=== PATIENT | female | born 1990 | race Caucasian/White ===

== ENCOUNTER 2017-01-18 06:13 | Inpatient (IN) | payer OTHER ==
[2017-01-18] MEDS ORDERED: RINGERS SOLUTION,LACTATED 1,000 ML IV PRN (06:25)
[2017-01-18 06:46] LABS: ABSOLUTE BASOPHILS # (AUTO) 0.1 10^3/uL (0.0-0.2); ABSOLUTE EOSINOPHILS # (AUTO) 0.2 10^3/uL (0.0-0.6); ABSOLUTE LYMPHOCYTES (AUTO) 1.9 10^3/uL (0.5-4.7); ABSOLUTE MONOCYTES (AUTO) 0.8 10^3/uL (0.1-1.4); ABSOLUTE NEUT (AUTO) 7.2 10^3/uL (1.7-8.2); BASOPHILS % (AUTO) 0.7 % (0-2); EOSINOPHILS % (AUTO) 1.6 % (0-6); HEMATOCRIT 36.6 % (36.0-47.0); HEMOGLOBIN 12.3 g/dL (12.0-15.5); HGB HCT DIFFERENCE 0.3; LYMPHOCYTES % (AUTO) 18.7 % (13-45); MEAN CORPUSCULAR HEMOGLOBIN 26.6 pg (27.0-33.4); MEAN CORPUSCULAR HGB CONC 33.6 g/dL (32.0-36.0); MEAN CORPUSCULAR VOLUME 79 fl (80-97); MONOCYTES % (AUTO) 7.9 % (3-13); RED BLOOD COUNT 4.63 10^6/uL (3.72-5.28); RED CELL DISTRIBUTION WIDTH 14.1 % (11.5-14.0); SEGMENTED NEUTROPHILS % (AUTO) 71.1 % (42-78); WHITE BLOOD COUNT 10.1 10^3/uL (4.0-10.5)
[2017-01-18 07:05] LABS: APPEARANCE,URINE SLIGHTLY-CLOUDY; BILIRUBIN,URINE NEGATIVE (NEGATIVE); GLUCOSE, URINE NEGATIVE (NEGATIVE); KETONES,URINE NEGATIVE (NEGATIVE); LEUKOCYTE ESTERASE,URINE MODERATE (NEGATIVE); NITRITE,URINE NEGATIVE (NEGATIVE); PROTEIN,URINE NEGATIVE (NEGATIVE); URINE SPECIFIC GRAVITY 1.013; UROBILINOGEN,URINE NEGATIVE mg/dL (<2.0)
[2017-01-18 07:19] LABS: URINE BARBITURATES SCREEN NEGATIVE; URINE METHADONE SCREEN NEGATIVE; URINE OPIATES LOW NEGATIVE; URINE PHENCYCLIDINE SCREEN NEGATIVE
--- NOTE | 2017-01-18 08:01 | L&D Flow Sheet ---
LD Flowsheet Datetime Report Generated by CPN: 01/18/2017 08:00 Datetime: 01/18/2017 07:58 NBP Sys/Joseline/Mean (mmHg): 80 (QS system process) : 50 (QS system process) : 60 (QS system process) Pulse: 75 (QS system process) Communication: RN at Bedside (Refugio Galdamez RN) LaborFlag: Antepartum (QS system process) Datetime: 01/18/2017 07:37 IV/Blood Work: IV Started; IV Bolus Started (Refugio Galdamez RN) Patient Care Comments: Previous IV discontinued; New IV started R Hand good blood return, site wnl, infuses well. LR 125ml/hr (Refugio Galdamez RN) Datetime: 01/18/2017 07:33 Communication Comments: Dr Moya orders for pt to have epidrual (Refugio Galdamez RN) Datetime: 01/18/2017 07:30 Monitor Mode: External; Palpation (Refugio Galdamez RN) Frequency (min): none/ pt denies (Refugio Galdamez RN) Resting Tone (Palpate): Relaxed (Refugio Galdmaez RN) Monitor Mode: External US (Refugio Galdamez RN) FHR Baseline Rate : 140 (Refugio Galdamez RN) Variability: Moderate 6-25 bpm (Refugio Galdamez RN) Accelerations: 15X15 (Refugio Galdamez RN) Decelerations: None (Refugio Galdamez RN) Level of Consciousness: Fully Conscious (Refugio Galdamez RN) DTR's/Clonus: DTRs 1+; No Clonus (Refugio Galdamez RN) Headache: Denies (Refugio Galdamez RN) Breath Sounds, Left: Clear and Equal (Refugio Galdamez RN) Breath Sounds, Right: Clear and Equal (Refugio Galdamez RN) Nausea/Vomiting: Denies (Refugio Galdamez RN) RUQ Epigastric Pain: Denies (Refugio Galdamez RN) Communication: RN at Bedside; RN Reviewed Strip (Refugio Galdamez RN) Communication Comments: Dr Moya at bedside for US for presentation; Breech (Refugio Galdamez RN) Datetime: 01/18/2017 07:28 NBP Sys/Joseline/Mean (mmHg): 118 (QS system process) : 74 (QS system process) : 90 (QS system process) LaborFlag: Antepartum (QS system process) Datetime: 01/18/2017 07:24 Procedures: Consents Signed (Refugio Rudolph, RN) Datetime: 01/18/2017 07:14 Patient Position/Activity: Right Lateral (Refugio Zaragozafleet, RN) Datetime: 01/18/2017 07:00 Stage of : Antepartum (Patricia Rutledge RN) Monitor Mode: External (Patricia Rutledge RN) Frequency (min): n/a (Patricia Rutledge RN) Quality: Mild (Patricia Rutledge RN) Resting Tone (Palpate): Relaxed (Patricia Rutledge RN) Monitor Mode: External US (Patricia Rutledge RN) FHR Baseline Rate : 135 (Patricia Rutledge RN) FHR Baseline Changes: No Baseline Change (Patricia Rutledge RN) Variability: Moderate 6-25 bpm (Patricia Rutledge RN) Accelerations: 15X15 (Patricia Rutledge RN) Decelerations: None (Patricia Rutledge RN) Pain Presence: None/Denies (Patricia Rutledge RN) Patient Position/Activity: Right Tilt; Semi-Fowlers (Patricia Rutledge RN) Communication: RN at Bedside; RN Reviewed Strip (Patricia Rutledge RN) LaborFlag: Antepartum (QS system process) Datetime: 01/18/2017 06:57 NBP Sys/Joseline/Mean (mmHg): 100 (QS system process) : 63 (QS system process) : 75 (QS system process) Pulse: 94 (QS system process) Datetime: 01/18/2017 06:55 IV/Blood Work: IV Started; IV Infusing per Order; New IV Bag Hung (Patricia Rutledge RN) Datetime: 01/18/2017 06:45 Level of Consciousness: Fully Conscious (Patricia Rutledge RN) DTR's/Clonus: DTRs 2+; No Clonus (Patricia Rutledge RN) Headache: Denies (Patricia Rutledge RN) Breath Sounds, Left: Clear and Equal (Patricia Rutledge RN) Breath Sounds, Right: Clear and Equal (Patricia Rutledge RN) Nausea/Vomiting: Denies (Patricia Rutledge RN) RUQ Epigastric Pain: Denies (Patricia Rutledge RN) Datetime: 01/18/2017 06:41 Contraction Comments: TOCO applied and explained to pt (Patricia Rutledge RN) Comments: US applied and explained to pt (Patricia Rutledge RN)
[2017-01-18] MEDS ORDERED: EPHEDRINE SULFATE INJ 50 MG/1 ML AMPULE ONE ×2 (08:23→12:14)
[2017-01-18] MEDS ORDERED: FENTANYL/BUPIVACAINE/NS/PF 200 MCG/100 ML RTUINJ EPI ONE (08:24)
[2017-01-18] MEDS ORDERED: BUPIVACAINE HCL 0.25 % INJ/PF (2.5 MG/1 ML) 30 ML VIAL ONE (08:24)
[2017-01-18] MEDS ORDERED: AZITHROMYCIN 500 MG in DEXTROSE 5%-WATER 250 ML IV PRN (10:00)
--- NOTE | 2017-01-18 10:01 | L&D Progress Notes ---
PROGRESS NOTES Datetime Report Generated by CPN: 01/18/2017 10:01 PROGRESS NOTE Comment: Attempted ecv forward roll. Pt requested stopping procedure when transvers head to mat right due to nausea and vomitng. Reverted to breech. Pt desires . SIGNATURE SIGNATURE: [id number] Signature: with User ID: [email or web address]
--- NOTE | 2017-01-18 10:01 | L&D Flow Sheet ---
LD Flowsheet Datetime Report Generated by CPN: 01/18/2017 10:00 Datetime: 01/18/2017 09:58 Pulse: 75 (QS system process) SpO2 (%): 97 (QS system process) Communication Comments: Failed version, pt requesting c/section, Dr Neilsen states to prep pt for c/section. (Refugio Galdamez, RN) LaborFlag: Antepartum (QS system process) Datetime: 01/18/2017 09:55 Monitor Interventions for UA: Naturita Adjusted (Refugio Galdamez, RN) Datetime: 01/18/2017 09:53 Pulse: 74 (QS system process) SpO2 (%): 97 (QS system process) Monitor Interventions for FHR: Ultrasound Adjusted (Refugio Galdamez, RN) LaborFlag: Antepartum (QS system process) Datetime: 01/18/2017 09:52 NBP Sys/Joseline/Mean (mmHg): 108 (QS system process) : 58 (QS system process) : 77 (QS system process) Pulse: 90 (QS system process) LaborFlag: Antepartum (QS system process) Datetime: 01/18/2017 09:48 Pulse: 80 (QS system process) SpO2 (%): 98 (QS system process) LaborFlag: Antepartum (QS system process) Datetime: 01/18/2017 09:46 Contraction Comments: toco removed for version (Refugio Rudolph, RN) Communication Comments: Dr Neilsen weaving professor at bedside for version (Refugio Rudolph, RN) Datetime: 01/18/2017 09:43 Pulse: 86 (QS system process) SpO2 (%): 97 (QS system process) LaborFlag: Antepartum (QS system process) Datetime: 01/18/2017 09:38 Pulse: 88 (QS system process) SpO2 (%): 97 (QS system process) LaborFlag: Antepartum (QS system process) Datetime: 01/18/2017 09:37 NBP Sys/Joseline/Mean (mmHg): 105 (QS system process) : 60 (QS system process) : 76 (QS system process) Pulse: 78 (QS system process) LaborFlag: Antepartum (QS system process) Datetime: 01/18/2017 09:31 NBP Sys/Joseline/Mean (mmHg): 108 (QS system process) : 54 (QS system process) : 78 (QS system process) Pulse: 77 (QS system process) LaborFlag: Antepartum (QS system process) Datetime: 01/18/2017 09:30 Monitor Mode: External; Palpation (Refugio Mayorgaeet, RN) Frequency (min): none/ pt denies (Refugio Rudolph, RN) Resting Tone (Palpate): Relaxed (Refugio Mayorgaeet, RN) Monitor Mode: External US (Refugio Mayorgaeet, RN) FHR Baseline Rate : 130 (Refugio Rudolph, RN) Variability: Moderate 6-25 bpm (Refugio Rudolph, RN) Accelerations: 15X15 (Refugio Rudolph, RN) Decelerations: Prolonged (Refugio Mayorgaeet, RN) Communication: RN at Bedside; RN Reviewed Strip (Refugio Mayorgaeet, RN) Datetime: 01/18/2017 09:29 NBP Sys/Joseline/Mean (mmHg): 140 (QS system process) : 83 (QS system process) : 106 (QS system process) Pulse: 69 (QS system process) LaborFlag: Antepartum (QS system process) Datetime: 01/18/2017 09:28 NBP Sys/Joseline/Mean (mmHg): 142 (QS system process) : 99 (QS system process) : 115 (QS system process) Pulse: 67 (QS system process) Patient Position/Activity: Right Lateral (Refugio Zaragozafleet, RN) LaborFlag: Antepartum (QS system process) Datetime: 01/18/2017 09:26 Pulse: 64 (QS system process) SpO2 (%): 100 (QS system process) Anesthesia Interventions Other: Ephedrine (Annotations: 5mg ) (Refugio Galdamez, RN) LaborFlag: Antepartum (QS system process) Datetime: 01/18/2017 09:25 Actions for Decelerations: Side to Side; Oxygen Applied; IV Bolus; Provider Reviewed Strip (Refugio Galdamez RN) Oxygen Amount : 10 (Refugio Galdamez RN) Oxygen Method: Non-Rebreather (Refugio Galdamez RN) Communication: Provider at Bedside (Refugio Galdamez RN) Communication Comments: Dr. Horne at (Refugio Galdamez RN) Datetime: 01/18/2017 09:24 NBP Sys/Joseline/Mean (mmHg): 86 (QS system process) : 50 (QS system process) : 62 (QS system process) Pulse: 45 (QS system process) Anesthesia Interventions Other: Ephedrine (Annotations: 10mg per Dr Seble order ) (Refugio Galdamez RN) LaborFlag: Antepartum (QS system process) Datetime: 01/18/2017 09:22 Actions for Decelerations: IV Bolus; Blood Pressure; Provider Notified (Refugio Galdamez RN) Nausea/Vomiting: Present (Refugio Galdamez RN) Communication Comments: Dr Moya called (Refugio Rudolph, RN) Datetime: 01/18/2017 09:21 Pulse: 44 (QS system process) SpO2 (%): 97 (QS system process) IV/Blood Work: IV Bag Number @ 3 (Refugio Galdamez RN) Patient Care Comments: Oxygen applied (Refugio Galdamez RN) Communication Comments: Dr Mcleod called (Refugio Galdamez RN) LaborFlag: Antepartum (QS system process) Datetime: 01/18/2017 09:20 I/O Interventions: Ayala Cath Inserted (Refugio Galdamez RN) Patient Care Comments: 12F by S Umberto [employer] (Refugio Galdamez RN) Datetime: 01/18/2017 09:19 NBP Sys/Joseline/Mean (mmHg): 109 (QS system process) : 57 (QS system process) : 75 (QS system process) Pulse: 87 (QS system process) LaborFlag: Antepartum (QS system process) Datetime: 01/18/2017 09:17 Pain Presence: None/Denies (Refugio Galdamez RN) Patient Position/Activity: Left Tilt (Refugio Galdamez RN) Anesthesia Level Check: T10- Umbilicus (Refugio Galdamez RN) LaborFlag: Antepartum (QS system process) Datetime: 01/18/2017 09:16 NBP Sys/Joseline/Mean (mmHg): 116 (QS system process) : 53 (QS system process) : 77 (QS system process) Pulse: 148 (QS system process) LaborFlag: Antepartum (QS system process) Datetime: 01/18/2017 09:15 NBP Sys/Joseline/Mean (mmHg): 115 (QS system process) : 60 (QS system process) : 83 (QS system process) Pulse: 80 (QS system process) LaborFlag: Antepartum (QS system process) Datetime: 01/18/2017 09:14 NBP Sys/Joseline/Mean (mmHg): 110 (QS system process) : 59 (QS system process) : 80 (QS system process) Pulse: 82 (QS system process) Monitor Interventions for FHR: Ultrasound Adjusted (Refugio Galdamez, RN) LaborFlag: Antepartum (QS system process) Datetime: 01/18/2017 09:13 NBP Sys/Joseline/Mean (mmHg): 108 (QS system process) : 58 (QS system process) : 80 (QS system process) Pulse: 84 (QS system process) LaborFlag: Antepartum (QS system process) Datetime: 01/18/2017 09:12 NBP Sys/Joseline/Mean (mmHg): 107 (QS system process) : 57 (QS system process) : 78 (QS system process) Pulse: 78 (QS system process) Epidural Procedure: Loading Dose (Refugio Galdamez, RN) LaborFlag: Antepartum (QS system process) Datetime: 01/18/2017 09:11 NBP Sys/Joseline/Mean (mmHg): 102 (QS system process) : 55 (QS system process) : 76 (QS system process) Pulse: 70 (QS system process) LaborFlag: Antepartum (QS system process) Datetime: 01/18/2017 09:10 Pulse: 70 (QS system process) SpO2 (%): 100 (QS system process) Epidural Procedure: Cath Placed; Test Dose (Refugio Galdamez RN) LaborFlag: Antepartum (QS system process) Datetime: 01/18/2017 09:05 Pulse: 76 (QS system process) SpO2 (%): 100 (QS system process) LaborFlag: Antepartum (QS system process) Datetime: 01/18/2017 09:03 Procedure Verify: Correct Patient Identity; Correct Side and Site are Marked; Accurate Procedure Consent Form; Agreement on Procedure to be Done; Correct Patient Position; Relevant Images and Results are Properly Labeled and Displayed; Addressed Need to Administer Antibiotics or Fluids for Irrigation; Safety Precautions Based on Patient History or Medication Use (Refugio Galdamez RN) Anesthesia Plans: Epidural (Refugio Galdamez RN) Epidural Positioning: Sitting (Refugio Galdamez RN) Datetime: 01/18/2017 09:00 Pulse: 81 (QS system process) SpO2 (%): 100 (QS system process) Monitor Mode: External; Palpation (Refugio Galdamez RN) Frequency (min): none/ pt denies (Refugio Galdamez RN) Resting Tone (Palpate): Relaxed (Refugio Galdamez RN) Monitor Mode: External US (Refugio Galdamez RN) FHR Baseline Rate : 130 (Refugio Galdamez RN) Variability: Moderate 6-25 bpm (Refugio Galdamez RN) Accelerations: 15X15 (Refugio Galdamez RN) Decelerations: None (Refugio Galdamez RN) Procedure Verify: Correct Patient Identity; Correct Side and Site are Marked; Accurate Procedure Consent Form; Agreement on Procedure to be Done; Correct Patient Position; Relevant Images and Results are Properly Labeled and Displayed; Addressed Need to Administer Antibiotics or Fluids for Irrigation; Safety Precautions Based on Patient History or Medication Use (Refugio Galdamez RN) Anesthesia Plans: Epidural (Refugio Galdamez RN) Epidural Positioning: Sitting (Refugio Galdamez RN) Anesthesia Comments: toco removed for epidural procedure; RN remains at bedside to attempt to obtain continuous fht and monitor pt (Refugio Galdamez RN) Anesthesia Comments: Dr Pruett at bedside to assess pt and obtain consent for epidural (Refugio Galdamez RN) Communication: RN at Bedside; RN Reviewed Strip (Refugio Galdamez RN) LaborFlag: Antepartum (QS system process) Datetime: 01/18/2017 08:58 NBP Sys/Joseline/Mean (mmHg): 106 (QS system process) : 64 (QS system process) : 79 (QS system process) Pulse: 74 (QS system process) LaborFlag: Antepartum (QS system process) Datetime: 01/18/2017 08:55 Procedure Verify: Correct Patient Identity; Correct Side and Site are Marked; Accurate Procedure Consent Form; Agreement on Procedure to be Done; Relevant Images and Results are Properly Labeled and Displayed; Addressed Need to Administer Antibiotics or Fluids for Irrigation; Safety Precautions Based on Patient History or Medication Use (Refugio Galdamez RN) Anesthesia Plans: Epidural (Refugio Galdamez RN) Anesthesia Comments: Dr Lawton called for epidural (Refugio Galdamez RN) Datetime: 01/18/2017 08:30 Monitor Mode: External; Palpation (Refugio Galdamez RN) Frequency (min): none/ pt denies (Refugio Galdamez RN) Resting Tone (Palpate): Relaxed (Refugio Galdamez RN) Monitor Mode: External US (Refugio Galdamez RN) FHR Baseline Rate : 130 (Refugio Galdamez RN) Variability: Moderate 6-25 bpm (Refugio Galdamez RN) Accelerations: 15X15 (Refugio Galdamez RN) Decelerations: None (Refugio Galdamez RN) Communication: RN at Bedside; RN Reviewed Strip (Refugio Galdamez RN) Datetime: 01/18/2017 08:28 NBP Sys/Joseline/Mean (mmHg): 109 (QS system process) : 66 (QS system process) : 81 (QS system process) Pulse: 71 (QS system process) IV/Blood Work: New IV Bag Hung; IV Bag Number @ 2 (Refugio Galdamez RN) Patient Care Comments: NEFTALI Hose, SCDs applied, 2nd bag LR for epidural hung (Refugio Galdamez, RN) LaborFlag: Antepartum (QS system process) Datetime: 01/18/2017 08:01 NBP Sys/Joseline/Mean (mmHg): 96 (QS system process) : 57 (QS system process) : 70 (QS system process) Pulse: 72 (QS system process) LaborFlag: Antepartum (QS system process) Datetime: 01/18/2017 08:00 Respirations: 18 (Refugio Perezt, RN) Monitor Mode: External; Palpation (Refugio Galdamez, RN) Frequency (min): none/ Pt denies (Refugio Perezt, RN) Resting Tone (Palpate): Relaxed (Refugio Galdamez, RN) Monitor Mode: External US (Refugio Galdamez, RN) FHR Baseline Rate : 140 (Refugio Rudolph, RN) Variability: Moderate 6-25 bpm (Refugio Rudolph, RN) Accelerations: 15X15 (Refugio Rudolph, RN) Decelerations: None (Refugio Galdamez RN) Pain Presence: None/Denies (Refugio Galdamez RN) Communication: RN at Bedside; RN Reviewed Strip (Refugio Galdamez RN) LaborFlag: Antepartum (QS system process)
[2017-01-18] MEDS ORDERED: CEFAZOLIN 2 GM/D5W RTU 2 GM/50 ML RTUPB IV ONE (10:07)
[2017-01-18] MEDS ORDERED: CITRIC ACID/SODIUM CITRATE ORAL SOLN 15 ML UDCUP ONE (10:07)
[2017-01-18] MEDS ORDERED: CEFAZOLIN 2 GM/D5W RTU 50 ML IV SCH (12:00)
--- NOTE | 2017-01-18 12:01 | L&D Flow Sheet ---
LD Flowsheet Datetime Report Generated by CPN: 01/18/2017 12:00 Datetime: 01/18/2017 11:52 NBP Sys/Joseline/Mean (mmHg): 107 (QS system process) : 64 (QS system process) : 78 (QS system process) Pulse: 81 (QS system process) LaborFlag: Antepartum (QS system process) Datetime: 01/18/2017 11:45 Monitor Mode: External; Palpation (Refugio Galdamez RN) Frequency (min): none / pt denies (Refugio Rudolph, RN) Resting Tone (Palpate): Relaxed (Refugio Galdamez RN) Monitor Mode: External US (Refugio Galdamez RN) FHR Baseline Rate : 130 (Refugio Galdamez RN) Variability: Moderate 6-25 bpm (Refugio Galdamez RN) Accelerations: 15X15 (Refugio Galdamez RN) Decelerations: None (Refugio Galdamez RN) Communication: RN at Bedside; RN Reviewed Strip (Refugio Galdamez RN) Datetime: 01/18/2017 11:43 Antibiotics: Ancef IV (Gm) @ 2 (Refugio Galdamez RN) Antiemetics/Antacids: Bicitra 15 ml PO (Refugio Galdamez RN) Datetime: 01/18/2017 11:37 NBP Sys/Joseline/Mean (mmHg): 97 (QS system process) : 54 (QS system process) : 71 (QS system process) Pulse: 98 (QS system process) LaborFlag: Antepartum (QS system process) Datetime: 01/18/2017 11:30 Respirations: 16 (Refugio Galdamez RN) Monitor Mode: External; Palpation (Refugio Galdamez RN) Frequency (min): none/ pt denies (Refugio Galdamez RN) Resting Tone (Palpate): Relaxed (Refugio Galdamez RN) Monitor Mode: External US (Refugio Galdamez RN) FHR Baseline Rate : 130 (Refugio Galdamez RN) Variability: Moderate 6-25 bpm (Refugio Galdamez RN) Accelerations: 15X15 (Refugio Galdamez RN) Decelerations: None (Refugio Galdamez RN) Comments: Broken tracing/ RN adjusting (Refugio Galdamez RN) Pain Presence: None/Denies (Refugio Galdamez RN) Level of Consciousness: Fully Conscious (Refugio Galdamez RN) Headache: Denies (Refugio Galdamez RN) Nausea/Vomiting: Denies (Refugio Galdamez RN) RUQ Epigastric Pain: Denies (Refugio Galdamez RN) Plan of Care: Plan of Care Discussed; C/S Delivery (Refugio Galdamez RN) Medications: Antibiotics (Refugio Galdamez RN) Communication: RN at Bedside; RN Reviewed Strip (Refugio Galdamez RN) LaborFlag: Antepartum (QS system process) Datetime: 01/18/2017 11:22 NBP Sys/Joseline/Mean (mmHg): 95 (QS system process) : 50 (QS system process) : 67 (QS system process) Pulse: 88 (QS system process) LaborFlag: Antepartum (QS system process) Datetime: 01/18/2017 11:15 Monitor Mode: External; Palpation (Refugio Galdamez RN) Frequency (min): none/ pt denies (Refugio Galdamez, RN) Resting Tone (Palpate): Relaxed (Refugio Galdamez RN) Monitor Mode: External US (Refugio Galdamez RN) FHR Baseline Rate : 140 (Refugio Galdamez, RN) Variability: Moderate 6-25 bpm (Refugio Galdamez, RN) Accelerations: None (Refugio Galdamez, RN) Decelerations: None (Refugio Galdamez, RN) Communication: RN at Bedside; RN Reviewed Strip (Refugio Galdamez RN) Datetime: 01/18/2017 11:07 NBP Sys/Joseline/Mean (mmHg): 108 (QS system process) : 59 (QS system process) : 78 (QS system process) Pulse: 76 (QS system process) LaborFlag: Antepartum (QS system process) Datetime: 01/18/2017 11:00 Respirations: 16 (Refugio Galdamez RN) Monitor Mode: External; Palpation (Refugio Galdamez RN) Frequency (min): none/ pt denies (Refugio Galdamez RN) Resting Tone (Palpate): Relaxed (Refugio Galdamez RN) Monitor Mode: External US (Refugio Galdamez RN) FHR Baseline Rate : 130 (Refugio Galdamez RN) Variability: Moderate 6-25 bpm (Refugio Galdamez RN) Accelerations: 15X15 (Refugio Galdamez RN) Decelerations: None (Refugio Galdamez RN) Pain Presence: None/Denies (Refugio Galdamez RN) Communication: RN at Bedside; RN Reviewed Strip (Refugio Galdamez RN) LaborFlag: Antepartum (QS system process) Datetime: 01/18/2017 10:52 NBP Sys/Joseline/Mean (mmHg): 102 (QS system process) : 56 (QS system process) : 73 (QS system process) Pulse: 81 (QS system process) LaborFlag: Antepartum (QS system process) Datetime: 01/18/2017 10:45 Respirations: 16 (Refugio Rudolph, RN) Monitor Mode: External; Palpation (Refugio Galdamez, RN) Frequency (min): none/ denies (Refugio Rudolph, RN) Resting Tone (Palpate): Relaxed (Refugio Rudolph, RN) Monitor Mode: External US (Refugio Perezt, RN) FHR Baseline Rate : 125 (Refugio Rudolph, RN) Variability: Moderate 6-25 bpm (Refugio Rudolph, RN) Accelerations: 15X15 (Refugio Rudolph, RN) Decelerations: None (Refugio Rudolph, RN) Pain Presence: None/Denies (Refugio Rudolph, RN) Level of Consciousness: Fully Conscious (Refugio Rudolph, RN) Headache: Denies (Refugio Mayorgaeet, RN) Nausea/Vomiting: Denies (RefugioARTHUR Marie RUQ Epigastric Pain: Denies (Refugio Galdamez RN) Anesthesia Level Check: T10- Umbilicus (Refugio Galdamez RN) Communication: RN at Bedside; RN Reviewed Strip (Refugio Galdamez RN) LaborFlag: Antepartum (QS system process) Datetime: 01/18/2017 10:37 NBP Sys/Joseline/Mean (mmHg): 110 (QS system process) : 59 (QS system process) : 79 (QS system process) Pulse: 78 (QS system process) LaborFlag: Antepartum (QS system process) Datetime: 01/18/2017 10:30 Monitor Mode: External; Palpation (Refugio Galdamez RN) Frequency (min): none/ pt denies (Refugio Galdamez RN) Resting Tone (Palpate): Relaxed (Refugio Galdamez RN) Monitor Mode: External US (Refugio Galdamez RN) FHR Baseline Rate : 120 (Refugio Galdamez RN) Variability: Moderate 6-25 bpm (Refugio Galdamez RN) Accelerations: 15X15 (Refugio Galdamez RN) Decelerations: None (Refugio Galdamez RN) Comments: Broken tracing, RN adjusting (Refugio Galdamez RN) Communication: RN at Bedside; RN Reviewed Strip (Refugio Galdamez RN) Datetime: 01/18/2017 10:24 NBP Sys/Joseline/Mean (mmHg): 106 (QS system process) : 63 (QS system process) : 76 (QS system process) Pulse: 90 (QS system process) LaborFlag: Antepartum (QS system process) Datetime: 01/18/2017 10:23 Pulse: 138 (QS system process) SpO2 (%): 97 (QS system process) LaborFlag: Antepartum (QS system process) Datetime: 01/18/2017 10:18 Pulse: 79 (QS system process) SpO2 (%): 95 (QS system process) LaborFlag: Antepartum (QS system process) Datetime: 01/18/2017 10:15 Pulse: 80 (QS system process) SpO2 (%): 94 (QS system process) Monitor Mode: External; Palpation (Refugio Galdamez RN) Frequency (min): none / pt denies (Refugio Galdamez RN) Resting Tone (Palpate): Relaxed (Refugio Galdamez RN) Monitor Mode: External US (Refugio Galdamez RN) FHR Baseline Rate : 130 (Refugio Galdamez RN) Variability: Moderate 6-25 bpm (Refugio Galdamez, RN) Accelerations: 15X15 (Refugio Galdamez, RN) Decelerations: None (Refugio Galdamez, RN) Communication: RN at Bedside; RN Reviewed Strip (Refugio Galdamez RN) LaborFlag: Antepartum (QS system process) Datetime: 01/18/2017 10:13 Pulse: 82 (QS system process) SpO2 (%): 96 (QS system process) LaborFlag: Antepartum (QS system process) Datetime: 01/18/2017 10:08 Pulse: 84 (QS system process) SpO2 (%): 98 (QS system process) LaborFlag: Antepartum (QS system process) Datetime: 01/18/2017 10:07 Pulse: 77 (QS system process) SpO2 (%): 86 (QS system process) LaborFlag: Antepartum (QS system process) Datetime: 01/18/2017 10:03 Pulse: 85 (QS system process) SpO2 (%): 97 (QS system process) LaborFlag: Antepartum (QS system process) Datetime: 01/18/2017 10:00 Monitor Mode: External; Palpation (Refugio Galdamez RN) Frequency (min): none / pt denies (Refugio Galdamez RN) Resting Tone (Palpate): Relaxed (Refugio Galdamez RN) Monitor Mode: External US (Refugio Galdamez RN) FHR Baseline Rate : 130 (Refugio Galdamez RN) Variability: Moderate 6-25 bpm (Refugio Galdamez RN) Accelerations: 15X15 (Refugio Galdamez RN) Decelerations: None (Refugio Galadmez RN) Procedures: Consents Signed (Annotations: Section Consent signed) (Refugio Galdamez RN) Communication: RN at Bedside; RN Reviewed Strip (Refugio Galdamez RN)
[2017-01-18] MEDS ORDERED: BUPIVACAINE HCL 0.5 % INJ/PF 30 ML SDV ONE (12:08)
[2017-01-18] MEDS ORDERED: FENTANYL CITRATE INJ/PF 100 MCG/2 ML AMPUL ONE (12:14)
[2017-01-18] MEDS ORDERED: OXYTOCIN 10 UNIT/ML VIAL ONE (12:14)
[2017-01-18] MEDS ORDERED: MIDAZOLAM 2 MG/2 ML INJ ONE (12:14)
[2017-01-18] MEDS ORDERED: FENTANYL CITRATE INJ/PF 250 MCG/5 ML AMPULE ONE (12:14)
[2017-01-18] MEDS ORDERED: OXYTOCIN/NORMAL SALINE 20 UNIT/1,000 ML RTUINJ ONE ×2 (12:15→14:25)
[2017-01-18] MEDS ORDERED: ONDANSETRON HCL INJ/PF 4 MG/2 ML SDV ONE (12:15)
[2017-01-18] MEDS ORDERED: MEPERIDINE HCL/PF INJ 25 MG/1 ML DISP.SYRIN IV PRN (12:42)
[2017-01-18] MEDS ORDERED: DIPHENHYDRAMINE HCL 50 MG/ML VIAL IV PRN (12:42)
[2017-01-18] MEDS ORDERED: MORPHINE SULFATE 10 MG/ML INJ IV PRN (12:42)
[2017-01-18] MEDS ORDERED: PROMETHAZINE HCL INJ 25 MG/1 ML VIAL IV PRN (12:42)
[2017-01-18] MEDS ORDERED: FENTANYL CITRATE INJ/PF 100 MCG/2 ML AMPUL IV PRN ×3 (12:42)
--- NOTE | 2017-01-18 13:21 | Operative Report ---
Operative Report DATE OF SURGERY: 01/18/17 PREOPERATIVE DIAGNOSIS: Intrauterine at term with breech presentation , failed external cephalic version, and late decelerations after epidural anesthesia with desire for primary POSTOPERATIVE DIAGNOSIS: Term intrauterine with breech presentation and failed external cephalic version OPERATION: Primary low transverse cervical section SURGEON: KIRK JAUREGUI ANESTHESIA: Epidural TISSUE REMOVED OR ALTERED: Placenta ESTIMATED BLOOD LOSS: 700 mL INTRAOPERATIVE FINDINGS: Holley female in complete breech presentation weighing 6 lbs. 4 oz. Apgars were 8 and 9. Normal tubes and ovaries and uterus had a 2-3 cm submucosal fibroid on the posterior aspect and a 2 cm anterior subserosal fibroid. Clear amniotic fluid. PROCEDURE: After discussing risks benefits and alternatives of the procedure and obtaining informed consent the patient was taken to the operating room with epidural anesthesia bolused. She was positioned in the dorsal supine position with a leftward tilt. She was then prepped and draped in the usual standard fashion. Pfannenstiel skin incision was made and the abdomen was entered in layers in the usual standard fashion. The C safe knife was used to make a low-transverse hysterotomy incision. The surgeon's hand was entered into the hysterotomy incision and the feet grasped. The infant was delivered to the level of the chest, a blue towel was wrapped around the body, and each arm was swung down over the anterior chest wall. The head was delivered and keeping it in flexion. Nasopharynx and oropharynx were bulb suctioned. Cord was clamped -2 and cut. The infant was handed to pediatrics who were present. The placenta was manually extracted. The uterus was cleared of all clots and debris. The hysterotomy incision was closed with 0 Monocryl in a running locked fashion. Excellent hemostasis was observed. The uterus tubes and ovaries were returned to the peritoneal cavity. The cavity was irrigated with saline and hemostasis was again assured. A layer of Interceed was placed in an inverted T fashion over the lower uterine segment and anterior aspect of the uterus. Peritoneum was closed with 2-0 Vicryl in a pursestring fashion. Rectus muscles were loosely reapproximated with interrupted stitches of 2-0 Vicryl. The subfascial space was inspected and noted to be hemostatic. The fascia was closed with #1 Vicryl. The subcutaneous tissues were irrigated and hemostasis assured. 3-O plain gut was used to reapproximate the subcutaneous space which was quite thick. The skin was closed in a subcuticular fashion with 4-0 Monocryl. An OpSite dressing was applied. The patient was taken to recovery in stable condition. All sponge needle lap and instrument counts were correct correct x 2.
[2017-01-18] MEDS ORDERED: ACETAMINOPHEN 100 ML IV ONE (13:44)
--- NOTE | 2017-01-18 13:59 | Delivery Summary ---
Del Sum A-C Datetime Report Generated by CPN: 01/18/2017 13:59 ADMISSION DATA Chief Complaint: Other Chief Complaint Comments: desire for ecv Admission Impression: Term, Intrauterine Admit Provider Comments: Discussed r/b/a of ecv and pt would like to proceed...plan if unable move to vertex given decel after epidural. Discussed r/b/a of emergently if distress during version. DELIVERY PERSONNEL Delivery Doctor:: Liz Moya MD Anesthesiologist:: Milton Lawton MD DRAWER IN PLAIN LOOM:: Gigi Tadeo CRNA Labor and Delivery Nurse:: Refugio Galdamez RNpolitical organizer Nurse:: Daisy Rose RN Mirror Department Supervisor:: Refugio Galdamez RN Nursery Nurse:: Sujata Whelan RN Nursery Nurse:: Giselle Ward RN Student Observers:: Veronique Cheng, Royal MCFADDEN Plate And Frame Filter Operator/CHILDBIRTH AND INFANT CARE TEACHER: ST Dylan Plate And Frame Filter Operator/CHILDBIRTH AND INFANT CARE TEACHER: Cuca Munoz CST MATERNAL INFORMATION Delivery Anesthesia: Epidural Medications After Delivery: Pitocin Bolus-Please Comment; Pitocin Drip 20 Units/1000ml NSS Meds After Delivery Comment: Pitocin 20 units in 1000 mL NS bolusing after delivery of placenta; Hung by anesthesia Estimated Blood Loss (ml): 700 Maternal Complications: None Other Maternal Complications: BREECH; Failed ECV LABOR SUMMARY EDC: 01/28/2017 00:00 No. Babies in Womb: 1 Attempted: No Labor Anesthesia: Epidural LABOR INFORMATION Reason for Induction: Not Applicable Oxytocin: N/A Group B Beta Strep: Negative Antibiotics # of Doses: 0 Steroids Given: None Reason Steroids Not Administered: Not Applicable MEMBRANES Membranes Rupture Method: Artificial Rupture of Membranes: 01/18/2017 12:27 Length of Rupture (hr): 0.05 Amniotic Fluid Color: Clear Amniotic Fluid Amount: Moderate Amniotic Fluid Odor: Normal STAGES OF LABOR Stage 3 hr: 0 Stage 3 min: 1 VAGINAL DELIVERY Episiotomy: None Laceration Extension: N/A Laceration Type: None Laceration Repair: Not Applicable Sponge Count Correct: N/A Sharps Count Correct: N/A CSECTION DELIVERY Primary Indication: Breech Presentation Other Primary Indication: Failed ECV CSection Urgency: Scheduled CSection Incidence: Primary Labor: No Labor Elective: Nonelective CSection Incision: Lower Uterine Transverse BABY A INFORMATION Infant Delivery Date/Time: 01/18/2017 12:30 Method of Delivery: Born in Route : No : N/A Forceps: N/A Vacuum Extraction: N/A Shoulder Dystocia : No PRESENTATION/POSITION BABY A Presentation: Breech Cephalic Presentation: N/A Vertex Position: N/A PLACENTA INFORMATION BABY A Placenta Delivery Time : 01/18/2017 12:31 Placenta Method of Delivery: Manual Removal Placenta Status: Delivered SCORES BABY A Heart Rate 1 min: >100 bpm Resp Effort 1 min: Good Cry Reflex Irritability 1 min: Cough or Sneeze or Pulls Away Muscle Tone 1 min: Active Motion Color 1 min: Blue/Pale Resuscitation Effort 1 min: Tactile Stimulation SCORE 1 MIN: 8 Heart Rate 5 min: >100 bpm Resp Effort 5 min: Good Cry Reflex Irritability 5 min: Cough or Sneeze or Pulls Away Muscle Tone 5 min: Active Motion Color 5 min: Body Hendrum, Extremities Blue Resuscitation Effort 5 min: N/A SCORE 5 MIN: 9 INFANT INFORMATION BABY A Gestational Age at Delivery: 38.4 Gestational Status: Early Term- 37- 38.6 Weeks Outcome : Liveborn Infant Condition : Stable Infant Sex: Female IDENTIFICATION BABY A Infant Verification Date/Time: 01/18/2017 12:30 ID Band Number: [id number] Mother's Name Verified: Yes Infant RN Verifying : Evette BOGDAN Rose Additional Verifying Personnel: Yamileth Galdamez RN WEIGHT/LENGTH BABY A Birthweight (gm): 2845 Weight (lb): 6 Weight (oz): 4 Infant Length (in): 19.25 Length (cm): 48.90 CORD INFORMATION BABY A No. Cord Vessels: 3 Nuchal Cord : N/A Cord Blood Taken: Yes-For Eval (Mom's Blood Type - or O+) Suction: Mouth; Nose ASSESSMENT BABY A Complications: None Physical Findings at Delivery: Within Normal Limits Physical Findings- Other: See nursery notes Respirations: Appears Normal Skin to Skin: Yes Skin to Skin Time (min): 45 Meter Reading Clerk/ALS Called : No Care By: Elijah Whelan RN/ Kassandra Ward RN Transferred To: Nursery BABY B INFORMATION : N/A
--- NOTE | 2017-01-18 14:01 | L&D Flow Sheet ---
LD Flowsheet Datetime Report Generated by CPN: 01/18/2017 14:00 Datetime: 01/18/2017 13:56 NBP Sys/Joseline/Mean (mmHg): 89 (QS system process) : 55 (QS system process) : 67 (QS system process) Pulse: 68 (QS system process) Datetime: 01/18/2017 13:52 Pulse: 72 (QS system process) SpO2 (%): 98 (QS system process) Datetime: 01/18/2017 13:51 NBP Sys/Joseline/Mean (mmHg): 96 (QS system process) : 61 (QS system process) : 74 (QS system process) Pulse: 75 (QS system process) Datetime: 01/18/2017 13:49 Pain Scale: 1 (Refugio Rudolph, RN) Pain Presence: Constant (Refugio Rudolph, RN) Pain Type: Ache (Refugio Rudolph, RN) Pain Location: Abdomen (Refugio Rudolph, RN) Pain Relief Measures: Pain Medication Given; Comfort Measures (Refugio Rudolph, RN) Datetime: 01/18/2017 13:47 Pulse: 73 (QS system process) SpO2 (%): 97 (QS system process) Datetime: 01/18/2017 13:46 NBP Sys/Joseline/Mean (mmHg): 100 (QS system process) : 62 (QS system process) : 76 (QS system process) Pulse: 87 (QS system process) Datetime: 01/18/2017 13:45 Stage of : Recovery (Refugio Rudolph, RN) Respirations: 18 (Refugio Rudolph, RN) Pain Presence: None/Denies (Refugio Rudolph, RN) Datetime: 01/18/2017 13:42 Pulse: 70 (QS system process) SpO2 (%): 96 (QS system process) Datetime: 01/18/2017 13:41 NBP Sys/Joseline/Mean (mmHg): 98 (QS system process) : 58 (QS system process) : 73 (QS system process) Pulse: 70 (QS system process) Datetime: 01/18/2017 13:37 Pulse: 71 (QS system process) SpO2 (%): 95 (QS system process) Datetime: 01/18/2017 13:36 NBP Sys/Joseline/Mean (mmHg): 95 (QS system process) : 57 (QS system process) : 70 (QS system process) Pulse: 70 (QS system process) Datetime: 01/18/2017 13:32 Pulse: 80 (QS system process) SpO2 (%): 97 (QS system process) Datetime: 01/18/2017 13:31 NBP Sys/Joseline/Mean (mmHg): 90 (QS system process) : 50 (QS system process) : 63 (QS system process) Pulse: 88 (QS system process) Datetime: 01/18/2017 13:30 Stage of : Recovery (Refugio Rudolph, RN) Respirations: 16 (Refugio Rudolph, RN) Pain Presence: None/Denies (Refugio Rudolph, RN) Datetime: 01/18/2017 13:26 NBP Sys/Joseline/Mean (mmHg): 94 (QS system process) : 53 (QS system process) : 68 (QS system process) Pulse: 73 (QS system process) Datetime: 01/18/2017 13:23 Pulse: 73 (QS system process) SpO2 (%): 97 (QS system process) Datetime: 01/18/2017 13:21 NBP Sys/Joseline/Mean (mmHg): 96 (QS system process) : 53 (QS system process) : 72 (QS system process) Pulse: 71 (QS system process) Datetime: 01/18/2017 13:18 Pulse: 77 (QS system process) SpO2 (%): 98 (QS system process) Datetime: 01/18/2017 13:16 NBP Sys/Joseline/Mean (mmHg): 95 (QS system process) : 50 (QS system process) : 66 (QS system process) Pulse: 72 (QS system process) Datetime: 01/18/2017 13:15 Stage of : Recovery (Refugio Rudolph, RN) Pain Presence: Constant (Refugio Rduolph, RN) Pain Type: Ache (Refugio Rudolph, RN) Pain Location: Abdomen (Refugio Rudolph, RN) Pain Relief Measures: Comfort Measures (Refugio Rudolph, RN) Datetime: 01/18/2017 13:13 Pulse: 78 (QS system process) SpO2 (%): 97 (QS system process) Datetime: 01/18/2017 13:10 NBP Sys/Joseline/Mean (mmHg): 95 (QS system process) : 54 (QS system process) : 70 (QS system process) Pulse: 74 (QS system process) Datetime: 01/18/2017 13:09 Stage of : Recovery (Refugio Rudolph, RN) Respirations: 16 (Refugio Rudolph, RN) Temperature (F): 97.3 (Refugio Rudolph, RN) Temperature (C): 36.3 (QS system process) Pain Presence: None/Denies (Refugio Rudolph, RN) Datetime: 01/18/2017 13:08 Pulse: 76 (QS system process) SpO2 (%): 97 (QS system process) LaborFlag: Antepartum (QS system process) Datetime: 01/18/2017 12:07 Patient Care Comments: Pt transferred to OR in stable condition via bed with RN (Daisy Rose RN) Epidural Procedure Other: Epidural pump discontinued (Refugio Galdamez RN) Datetime: 01/18/2017 12:00 Monitor Mode: External; Palpation (Refugio Galdamez RN) Frequency (min): none / pt denies (Refugio Galdamez RN) Resting Tone (Palpate): Relaxed (Refugio Galdamez RN) Monitor Mode: External US (Refugio Galdamez RN) FHR Baseline Rate : 130 (Refugio Galdamez RN) Variability: Moderate 6-25 bpm (Refugio Galdamez RN) Accelerations: 15X15 (Refugio Galdamez RN) Decelerations: None (Refugio Galdamez RN) Communication: RN at Bedside; RN Reviewed Strip (Refugio Galdamez RN)
[2017-01-18] MEDS ORDERED: MEASLES,MUMPS&RUBELLA VACC/PF 0.5 ML VIAL SUBCUT PRN (14:12)
[2017-01-18] MEDS ORDERED: SIMETHICONE 80 MG TAB.CHEW PO PRN (14:12)
[2017-01-18] MEDS ORDERED: ACETAMINOPHEN 325 MG TABLET PO PRN (14:12)
[2017-01-18] MEDS ORDERED: HYDROMORPHONE HCL INJ/PF 2 MG/ML AMPULE IV PRN (14:12)
[2017-01-18] MEDS ORDERED: DIPH/PERTUSS(ACELL)/TETANUS VAC/PF 0.5 ML SYR (>=10YO) IM PRN (14:12)
[2017-01-18] MEDS ORDERED: PROMETHAZINE HCL INJ 25 MG/1 ML VIAL IM PRN (14:12)
[2017-01-18] MEDS ORDERED: OXYTOCIN/NORMAL SALINE 20 UNIT/1,000 ML RTUINJ INJ PRN (14:12)
[2017-01-18] MEDS ORDERED: OXYCODONE-ACETAMINOPHEN 5-325 MG TABLET PO PRN ×2 (14:12)
[2017-01-18] MEDS ORDERED: KETOROLAC TROMETHAMINE INJ/PF 30 MG/1 ML SDV ONE (14:25)
--- NOTE | 2017-01-18 15:09 | Admission Physical ---
Datetime Report Generated by CPN: 01/18/2017 15:08 CURRENT ADMISSION Chief Complaint: Other Chief Complaint Other: desire for ecv Admit Plan: Admit to Unit ALLERGIES Medication Allergies: Yes Medication Allergies: Penicillins (01/18/2017); oxycodone (01/18/2017); acetaminophen (01/18/2017) Food Allergies: n/a Environmental Allergies: n/a OBSTETRICAL HISTORY EDC: 01/28/2017 00:00 : 1 Para: 0 Term: 0 : 0 SAB: 0 IAB: 0 Ectopic: 0 Livin Cesareans: 0 VBACs: 0 Multiple Births: 0 Gestational Diabetes: No Rh Sensitization: No Incompetent Cervix: No NUZHAT: No Infertility: No ART Treatment: No Uterine Anomaly: No IUGR: No Hx Previous C/S: No Macrosomia: No Hx Loss/Stillborn: No PIH: No Hx : No Placenta Previa/Abruption: No Depression/PP Depression: No PTL/PROM: No Post Hemorrhage: No Current Procedures: None Obstetrical History Comments: g1 - current SEE RECORDS Alcohol: No Marijuana : No Cocaine: No Other Illicit Drugs: No Cigarettes: Never Smoker. [id number] MEDICAL HISTORY Diabetes: No Blood Transfusion: No Pulmonary Disease (Asthma, TB): No Breast Disease: No Hypertension: No Senior Accounts Payable Specialist Surgery: No Heart Disease: No Hosp/Surgery: No Autoimmune Disorder: No Anesthetic Complications: No Kidney Disease: No Abnormal Pap Smear: No Neuro/Epilepsy: No Psychiatric Disorders: No Other Medical Diseases: No Hepatitis/Liver Disease: No Significant Family History: No Varicosities/Phlebitis: No Trauma/Violence : No Thyroid Dysfunction: No INFECTIOUS HISTORY Gonorrhea: No Genital Herpes: No Chlamydia: No Tuberculosis: No Syphilis: No Hepatitis: No HIV/AIDS Exposure: No Rash or Viral Illness: No HPV: No PHYSICAL EXAM General: Normal HEENT: Normal Neurologic: Normal Thyroid: Normal Heart: Normal Lungs: Normal Breast: Normal Back: Normal Abdomen: Normal Genitourinary Exam: Normal Extremities: Normal DTRs: Normal Pelvic Type: Adequate Physical Exam Comments: breech presentation on sono cat 1 fhts on admit...had decl after epidural FETUS A EGA: 38.4 Monitoring: External US Admit Comment: Discussed r/b/a of ecv and pt would like to proceed...plan if unable move to vertex given decel after epidural. Discussed r/b/a of emergently if distress during version. PLANS FOR LABOR AND DELIVERY Labor and Delivery: None Pain Management: Epidural Feeding Preference: Breast Benefit of Breast Feed Discussed: Yes Circumcision: N/A INFORMED CONSENT Signature: with User ID: [email or web address]
[2017-01-18] MEDS: DOCUSATE SODIUM 100 MG CAPSULE PO SCH (17:48)
[2017-01-18] MEDS ORDERED: KETOROLAC TROMETHAMINE INJ/PF 30 MG/1 ML SDV IV SCH (18:00)
--- NOTE | 2017-01-18 19:01 | L&D Flow Sheet ---
LD Flowsheet Datetime Report Generated by CPN: 01/18/2017 19:00 Datetime: 01/18/2017 15:00 Stage of : Recovery (Refugio Rudolph, RN) Respirations: 18 (Refugio Rudolph, RN) Pain Presence: None/Denies (Refugio Rudolph, RN) Datetime: 01/18/2017 14:57 NBP Sys/Joseline/Mean (mmHg): 93 (QS system process) : 55 (QS system process) : 73 (QS system process) Pulse: 72 (QS system process) Datetime: 01/18/2017 14:45 Stage of : Recovery (Refugio Rudolph, RN) Respirations: 16 (Refugio Rudolph, RN) Pain Presence: None/Denies (Refugio Rudolph, RN) Datetime: 01/18/2017 14:42 NBP Sys/Joseline/Mean (mmHg): 94 (QS system process) : 58 (QS system process) : 71 (QS system process) Pulse: 68 (QS system process) Datetime: 01/18/2017 14:30 Stage of : Recovery (Refugio Rudolph, RN) Temperature (F): 97.6 (Refugio Rudolph, RN) Temperature (C): 36.4 (QS system process) Temperature Route: Axillary (Refugio Rudolph, RN) Pain Scale: 1 (Refugio Rudolph, RN) Pain Presence: None/Denies (Refugio Rudolph, RN) Pain Presence: Constant (Refugio Rudolph, RN) Pain Location: Abdomen (Refugio Rudolph, RN) Datetime: 01/18/2017 14:27 NBP Sys/Joseline/Mean (mmHg): 97 (QS system process) : 56 (QS system process) : 71 (QS system process) Pulse: 67 (QS system process) Datetime: 01/18/2017 14:15 Stage of : Recovery (Refugio Rudolph, RN) Respirations: 16 (Refugio Rudolph, RN) Pain Presence: None/Denies (Refugio Rudolph, RN) Datetime: 01/18/2017 14:00 Stage of : Recovery (Refugio Rudolph, RN) Respirations: 16 (Refugio Rudolph, RN) Pain Presence: None/Denies (Refugio Rudolph, RN) Datetime: 01/18/2017 13:56 NBP Sys/Joseline/Mean (mmHg): 89 (QS system process) : 55 (QS system process) : 67 (QS system process) Pulse: 68 (QS system process) Datetime: 01/18/2017 13:52 Pulse: 72 (QS system process) SpO2 (%): 98 (QS system process) Datetime: 01/18/2017 13:51 NBP Sys/Joseline/Mean (mmHg): 96 (QS system process) : 61 (QS system process) : 74 (QS system process) Pulse: 75 (QS system process) Datetime: 01/18/2017 13:49 Pain Scale: 1 (Refugio Perezt, RN) Pain Presence: Constant (Refugio Perezt, RN) Pain Type: Ache (Refugio Mayorgaeet, RN) Pain Location: Abdomen (Refugio Perezt, RN) Pain Relief Measures: Pain Medication Given; Comfort Measures (Refugio Mayorgaeet, RN) Datetime: 01/18/2017 13:47 Pulse: 73 (QS system process) SpO2 (%): 97 (QS system process) Datetime: 01/18/2017 13:46 NBP Sys/Joseline/Mean (mmHg): 100 (QS system process) : 62 (QS system process) : 76 (QS system process) Pulse: 87 (QS system process) Datetime: 01/18/2017 13:45 Stage of : Recovery (Refugio Rudolph, RN) Respirations: 18 (Refugio Rudolph, RN) Pain Presence: None/Denies (Refugio Rudolph, RN) Datetime: 01/18/2017 13:42 Pulse: 70 (QS system process) SpO2 (%): 96 (QS system process) Datetime: 01/18/2017 13:41 NBP Sys/Joseline/Mean (mmHg): 98 (QS system process) : 58 (QS system process) : 73 (QS system process) Pulse: 70 (QS system process) Datetime: 01/18/2017 13:37 Pulse: 71 (QS system process) SpO2 (%): 95 (QS system process) Datetime: 01/18/2017 13:36 NBP Sys/Joseline/Mean (mmHg): 95 (QS system process) : 57 (QS system process) : 70 (QS system process) Pulse: 70 (QS system process) Datetime: 01/18/2017 13:32 Pulse: 80 (QS system process) SpO2 (%): 97 (QS system process) Datetime: 01/18/2017 13:31 NBP Sys/Joseline/Mean (mmHg): 90 (QS system process) : 50 (QS system process) : 63 (QS system process) Pulse: 88 (QS system process) Datetime: 01/18/2017 13:30 Stage of : Recovery (Refugio Rudolph, RN) Respirations: 16 (Refugio Rudolph, RN) Pain Presence: None/Denies (Refugio Rudolph, RN) Datetime: 01/18/2017 13:26 NBP Sys/Joseline/Mean (mmHg): 94 (QS system process) : 53 (QS system process) : 68 (QS system process) Pulse: 73 (QS system process) Datetime: 01/18/2017 13:23 Pulse: 73 (QS system process) SpO2 (%): 97 (QS system process) Datetime: 01/18/2017 13:21 NBP Sys/Joseline/Mean (mmHg): 96 (QS system process) : 53 (QS system process) : 72 (QS system process) Pulse: 71 (QS system process) Datetime: 01/18/2017 13:18 Pulse: 77 (QS system process) SpO2 (%): 98 (QS system process) Datetime: 01/18/2017 13:16 NBP Sys/Joseline/Mean (mmHg): 95 (QS system process) : 50 (QS system process) : 66 (QS system process) Pulse: 72 (QS system process) Datetime: 01/18/2017 13:15 Stage of : Recovery (Refugio Rudolph, RN) Pain Presence: Constant (Refugio Rudolph, RN) Pain Type: Ache (Refugio Rudolph, RN) Pain Location: Abdomen (Refugio Rudolph, RN) Pain Relief Measures: Comfort Measures (Refugio Rudolph, RN) Datetime: 01/18/2017 13:13 Pulse: 78 (QS system process) SpO2 (%): 97 (QS system process) Datetime: 01/18/2017 13:10 NBP Sys/Joseline/Mean (mmHg): 95 (QS system process) : 54 (QS system process) : 70 (QS system process) Pulse: 74 (QS system process) Datetime: 01/18/2017 13:09 Stage of : Recovery (Refugio Rudolph, RN) Respirations: 16 (Refugio Rudolph, RN) Temperature (F): 97.3 (Refugio Rudolph, RN) Temperature (C): 36.3 (QS system process) Pain Presence: None/Denies (Refugio Rudolph, RN) Datetime: 01/18/2017 13:08 Pulse: 76 (QS system process) SpO2 (%): 97 (QS system process) LaborFlag: Antepartum (QS system process) Datetime: 01/18/2017 12:07 Patient Care Comments: Pt transferred to OR in stable condition via bed with RN (Daisy Matthewmira, RN) Epidural Procedure Other: Epidural pump discontinued (Refugio Galdamez, RN) Datetime: 01/18/2017 12:04 Communication Comments: K. Mejia, [employer] called and notified of pt transport to OR shortly. Provider verbalized understanding. (Daisy Matthewano, RN) Datetime: 01/18/2017 12:03 Communication Comments: Anesthesia and Nursery notified of pt transport to OR shortly. Anesthesiologists and nursery RNs verbalize understanding. (Daisy Rose RN) Datetime: 01/18/2017 12:00 Monitor Mode: External; Palpation (Refugio Galdamez RN) Frequency (min): none / pt denies (Refugio Galdamez RN) Resting Tone (Palpate): Relaxed (Refugio Galdamez RN) Monitor Mode: External US (Refugio Galdamez RN) FHR Baseline Rate : 130 (Refugio Galdamez RN) Variability: Moderate 6-25 bpm (Refugio Galdamez RN) Accelerations: 15X15 (Refugio Galdamez RN) Decelerations: None (Refugio Galdamez RN) Communication: RN at Bedside; RN Reviewed Strip (Refugio Galdamez RN) Datetime: 01/18/2017 11:52 NBP Sys/Joseline/Mean (mmHg): 107 (QS system process) : 64 (QS system process) : 78 (QS system process) Pulse: 81 (QS system process) LaborFlag: Antepartum (QS system process) Datetime: 01/18/2017 11:45 Monitor Mode: External; Palpation (Refugio Perezt, RN) Frequency (min): none / pt denies (Refugio Perezt, RN) Resting Tone (Palpate): Relaxed (Refugio Mayorgaeet, RN) Monitor Mode: External US (Refugio Mayorgaeet, RN) FHR Baseline Rate : 130 (Refugio Zaragozafleet, RN) Variability: Moderate 6-25 bpm (Refugio Rudolph, RN) Accelerations: 15X15 (Refugio Rudolph, RN) Decelerations: None (Refugio Mayorgaeet, RN) Communication: RN at Bedside; RN Reviewed Strip (Refugio Galdamez, RN) Datetime: 01/18/2017 11:43 Antibiotics: Ancef IV (Gm) @ 2 (Refugio Galdamez, RN) Antiemetics/Antacids: Bicitra 15 ml PO (Refugio Mayorgaeet, RN) Datetime: 01/18/2017 11:37 NBP Sys/Joseline/Mean (mmHg): 97 (QS system process) : 54 (QS system process) : 71 (QS system process) Pulse: 98 (QS system process) LaborFlag: Antepartum (QS system process) Datetime: 01/18/2017 11:30 Respirations: 16 (Refugio Galdamez, RN) Monitor Mode: External; Palpation (Refugio Galdamez, RN) Frequency (min): none/ pt denies (Refugio Galdamez, RN) Resting Tone (Palpate): Relaxed (Refugio Galdamez, RN) Monitor Mode: External US (Refugio Galdamez, RN) FHR Baseline Rate : 130 (Refugio Mayorgaeet, RN) Variability: Moderate 6-25 bpm (Refugio Perezt, RN) Accelerations: 15X15 (Refugio Perezt, RN) Decelerations: None (Refugio Galdamez, RN) Comments: Broken tracing/ RN adjusting (Refugio Galdamez, RN) Pain Presence: None/Denies (Refugio Galdamez RN) Level of Consciousness: Fully Conscious (Refugio Galdamez RN) Headache: Denies (Refugio Galdamez RN) Nausea/Vomiting: Denies (Refugio Galdamez RN) RUQ Epigastric Pain: Denies (Refugio Galdamez RN) Plan of Care: Plan of Care Discussed; C/S Delivery (Refugio Galdamez RN) Medications: Antibiotics (Refugio Galdamez RN) Communication: RN at Bedside; RN Reviewed Strip (Refugio Galdamez RN) Communication Comments: Dr Moya called unit, states to open OR; plan for C/S at 1200. (Refugio Galdamez RN) LaborFlag: Antepartum (QS system process) Datetime: 01/18/2017 11:22 NBP Sys/Joselnie/Mean (mmHg): 95 (QS system process) : 50 (QS system process) : 67 (QS system process) Pulse: 88 (QS system process) LaborFlag: Antepartum (QS system process) Datetime: 01/18/2017 11:15 Monitor Mode: External; Palpation (Refugio Rudolph, RN) Frequency (min): none/ pt denies (Refugio Galdamez, RN) Resting Tone (Palpate): Relaxed (Refugio Galdamez RN) Monitor Mode: External US (Refugio Galdamez RN) FHR Baseline Rate : 140 (Refugio Galdamez, RN) Variability: Moderate 6-25 bpm (Refugio Galdamez, RN) Accelerations: None (Refugio Galdamez, RN) Decelerations: None (Refugio Galdamez RN) Communication: RN at Bedside; RN Reviewed Strip (Refugio Galdamez RN) Datetime: 01/18/2017 11:07 NBP Sys/Joseline/Mean (mmHg): 108 (QS system process) : 59 (QS system process) : 78 (QS system process) Pulse: 76 (QS system process) LaborFlag: Antepartum (QS system process) Datetime: 01/18/2017 11:00 Respirations: 16 (Refugio Galdamez RN) Monitor Mode: External; Palpation (Refugio Galdamez RN) Frequency (min): none/ pt denies (Refugio Galdamez RN) Resting Tone (Palpate): Relaxed (Refugio Galdamez RN) Monitor Mode: External US (Refugio Galdamez RN) FHR Baseline Rate : 130 (Refugio Galdamez RN) Variability: Moderate 6-25 bpm (Refugio Galdamez RN) Accelerations: 15X15 (Refugio Galdamez RN) Decelerations: None (Refugio Galdamez RN) Pain Presence: None/Denies (Refugio Galdamez RN) Communication: RN at Bedside; RN Reviewed Strip (Refugio Galdamez RN) LaborFlag: Antepartum (QS system process) Datetime: 01/18/2017 10:52 NBP Sys/Joseline/Mean (mmHg): 102 (QS system process) : 56 (QS system process) : 73 (QS system process) Pulse: 81 (QS system process) LaborFlag: Antepartum (QS system process) Datetime: 01/18/2017 10:45 Respirations: 16 (Refugio Galdamez RN) Monitor Mode: External; Palpation (Refugio Galdamez RN) Frequency (min): none/ denies (Refugio Galdamez RN) Resting Tone (Palpate): Relaxed (Refugio Galdamez RN) Monitor Mode: External US (Refugio Galdamez RN) FHR Baseline Rate : 125 (Refugio Galdamez RN) Variability: Moderate 6-25 bpm (Refugio Galdamez RN) Accelerations: 15X15 (Refugio Galdamez RN) Decelerations: None (Refugio Galdamez RN) Pain Presence: None/Denies (Refugio Galdamez RN) Level of Consciousness: Fully Conscious (Refugio Galdamez RN) Headache: Denies (Refugio Galdamez RN) Nausea/Vomiting: Denies (Refugio Galdamez RN) RUQ Epigastric Pain: Denies (Refugio Galdamez RN) Anesthesia Level Check: T10- Umbilicus (Refugio Galdamez RN) Communication: RN at Bedside; RN Reviewed Strip (Refugio Galdamez RN) LaborFlag: Antepartum (QS system process) Datetime: 01/18/2017 10:37 NBP Sys/Joseline/Mean (mmHg): 110 (QS system process) : 59 (QS system process) : 79 (QS system process) Pulse: 78 (QS system process) LaborFlag: Antepartum (QS system process) Datetime: 01/18/2017 10:30 Monitor Mode: External; Palpation (Refugio Galdamez RN) Frequency (min): none/ pt denies (Refugio Galdamez, RN) Resting Tone (Palpate): Relaxed (Refugio Galdamez, RN) Monitor Mode: External US (Refugio Galdamez RN) FHR Baseline Rate : 120 (Refugio Galdamez, RN) Variability: Moderate 6-25 bpm (Refugio Galdamez, RN) Accelerations: 15X15 (Refugio Galdamez, RN) Decelerations: None (Refugio Galdamez RN) Comments: Broken tracing, RN adjusting (Refugio Galdamez RN) Communication: RN at Bedside; RN Reviewed Strip (Refugio Galdamez RN) Datetime: 01/18/2017 10:24 NBP Sys/Joseline/Mean (mmHg): 106 (QS system process) : 63 (QS system process) : 76 (QS system process) Pulse: 90 (QS system process) LaborFlag: Antepartum (QS system process) Datetime: 01/18/2017 10:23 Pulse: 138 (QS system process) SpO2 (%): 97 (QS system process) LaborFlag: Antepartum (QS system process) Datetime: 01/18/2017 10:18 Pulse: 79 (QS system process) SpO2 (%): 95 (QS system process) LaborFlag: Antepartum (QS system process) Datetime: 01/18/2017 10:15 Pulse: 80 (QS system process) SpO2 (%): 94 (QS system process) Monitor Mode: External; Palpation (Refugio Galdamez RN) Frequency (min): none / pt denies (Refugio Galdamez RN) Resting Tone (Palpate): Relaxed (Refugio Galdamez RN) Monitor Mode: External US (Refugio Galdamez RN) FHR Baseline Rate : 130 (Refugio Galdamez RN) Variability: Moderate 6-25 bpm (Refugio Galdamez RN) Accelerations: 15X15 (Refugio Galdamez RN) Decelerations: None (Refugio Galdamez RN) Communication: RN at Bedside; RN Reviewed Strip (Refugio Galdamez RN) LaborFlag: Antepartum (QS system process) Datetime: 01/18/2017 10:13 Pulse: 82 (QS system process) SpO2 (%): 96 (QS system process) LaborFlag: Antepartum (QS system process) Datetime: 01/18/2017 10:08 Pulse: 84 (QS system process) SpO2 (%): 98 (QS system process) LaborFlag: Antepartum (QS system process) Datetime: 01/18/2017 10:07 Pulse: 77 (QS system process) SpO2 (%): 86 (QS system process) LaborFlag: Antepartum (QS system process) Datetime: 01/18/2017 10:03 Pulse: 85 (QS system process) SpO2 (%): 97 (QS system process) LaborFlag: Antepartum (QS system process) Datetime: 01/18/2017 10:00 Monitor Mode: External; Palpation (Refugio Galdamez, RN) Frequency (min): none / pt denies (Refugio Galdamez, RN) Resting Tone (Palpate): Relaxed (Refugio Galdamez RN) Monitor Mode: External US (Refugio Galdamez RN) FHR Baseline Rate : 130 (Refugio Galdamez RN) Variability: Moderate 6-25 bpm (Refugio Galdamez RN) Accelerations: 15X15 (Refugio Galdamez RN) Decelerations: None (Refugio Galdamez RN) Procedures: Consents Signed (Annotations: Section Consent signed) (Refugio Galdamez RN) Communication: RN at Bedside; RN Reviewed Strip (Refugio Galdamez RN) Datetime: 01/18/2017 09:58 Pulse: 75 (QS system process) SpO2 (%): 97 (QS system process) Communication Comments: Failed version, pt requesting c/section, Dr Moya states to prep pt for c/section. (Refugio Galdamez RN) LaborFlag: Antepartum (QS system process) Datetime: 01/18/2017 09:55 Monitor Interventions for UA: [place] Adjusted (Refugio Galdamez RN) Datetime: 01/18/2017 09:53 Pulse: 74 (QS system process) SpO2 (%): 97 (QS system process) Monitor Interventions for FHR: Ultrasound Adjusted (Refugio Galdamez, RN) LaborFlag: Antepartum (QS system process) Datetime: 01/18/2017 09:52 NBP Sys/Joseline/Mean (mmHg): 108 (QS system process) : 58 (QS system process) : 77 (QS system process) Pulse: 90 (QS system process) LaborFlag: Antepartum (QS system process) Datetime: 01/18/2017 09:48 Pulse: 80 (QS system process) SpO2 (%): 98 (QS system process) LaborFlag: Antepartum (QS system process) Datetime: 01/18/2017 09:46 Contraction Comments: toco removed for version (Refugio Galdamez RN) Communication Comments: Dr Nita Shukla RN at bedside for version (Refugio Galdamez RN) Datetime: 01/18/2017 09:45 Monitor Mode: External; Palpation (Refugio Galdamez RN) Frequency (min): none/ pt denies (Refugio Galdamez RN) Resting Tone (Palpate): Relaxed (Refugio Galdamez RN) Monitor Mode: External US (Refugio Galdamez RN) FHR Baseline Rate : 140 (Refugio Galdamez RN) Variability: Moderate 6-25 bpm (Refugio Galdamez RN) Accelerations: None (Refugio Galdamez RN) Decelerations: None (Refugio aGldamez RN) Communication: RN at Bedside; RN Reviewed Strip (Refugio Rudolph, RN) Datetime: 01/18/2017 09:43 Pulse: 86 (QS system process) SpO2 (%): 97 (QS system process) LaborFlag: Antepartum (QS system process) Datetime: 01/18/2017 09:38 Pulse: 88 (QS system process) SpO2 (%): 97 (QS system process) LaborFlag: Antepartum (QS system process) Datetime: 01/18/2017 09:37 NBP Sys/Joseline/Mean (mmHg): 105 (QS system process) : 60 (QS system process) : 76 (QS system process) Pulse: 78 (QS system process) LaborFlag: Antepartum (QS system process) Datetime: 01/18/2017 09:31 NBP Sys/Joseline/Mean (mmHg): 108 (QS system process) : 54 (QS system process) : 78 (QS system process) Pulse: 77 (QS system process) LaborFlag: Antepartum (QS system process) Datetime: 01/18/2017 09:30 Monitor Mode: External; Palpation (Refugio Galdamez RN) Frequency (min): none/ pt denies (Refugio Galdmaez RN) Resting Tone (Palpate): Relaxed (Refugio Galdamez RN) Monitor Mode: External US (Refugio Galdamez RN) FHR Baseline Rate : 130 (Refugio Galdamez RN) Variability: Moderate 6-25 bpm (Refugio Galdamez RN) Accelerations: 15X15 (Refugio Galdamez RN) Decelerations: Prolonged (Refugio Rudolph, RN) Communication: RN at Bedside; RN Reviewed Strip (Refugio Zaragozafleet, RN) Datetime: 01/18/2017 09:29 NBP Sys/Joseline/Mean (mmHg): 140 (QS system process) : 83 (QS system process) : 106 (QS system process) Pulse: 69 (QS system process) LaborFlag: Antepartum (QS system process) Datetime: 01/18/2017 09:28 NBP Sys/Joseline/Mean (mmHg): 142 (QS system process) : 99 (QS system process) : 115 (QS system process) Pulse: 67 (QS system process) Patient Position/Activity: Right Lateral (Refugio Galdamez, RN) LaborFlag: Antepartum (QS system process) Datetime: 01/18/2017 09:26 Pulse: 64 (QS system process) SpO2 (%): 100 (QS system process) Anesthesia Interventions Other: Ephedrine (Annotations: 5mg ) (Refugio Galdamez RN) LaborFlag: Antepartum (QS system process) Datetime: 01/18/2017 09:25 Actions for Decelerations: Side to Side; Oxygen Applied; IV Bolus; Provider Reviewed Strip (Refugio Galdamez RN) Oxygen Amount : 10 (Refugio Galdamez RN) Oxygen Method: Non-Rebreather (Refugio Galdamez RN) Communication: Provider at Bedside (Refugio Galdamez RN) Communication Comments: Dr. Horne at (Refugio Galdamez RN) Datetime: 01/18/2017 09:24 NBP Sys/Joseline/Mean (mmHg): 86 (QS system process) : 50 (QS system process) : 62 (QS system process) Pulse: 45 (QS system process) Anesthesia Interventions Other: Ephedrine (Annotations: 10mg per Dr K order ) (Refugio Galdamez RN) LaborFlag: Antepartum (QS system process) Datetime: 01/18/2017 09:22 Actions for Decelerations: IV Bolus; Blood Pressure; Provider Notified (Refugio Galdamez RN) Nausea/Vomiting: Present (Refugio Galdamez RN) Communication Comments: Dr Moya called (Refugio Galdamez RN) Datetime: 01/18/2017 09:21 Pulse: 44 (QS system process) SpO2 (%): 97 (QS system process) IV/Blood Work: IV Bag Number @ 3 (Refugio Galdamez RN) Patient Care Comments: Oxygen applied (Refugio Galdamez RN) Communication Comments: Dr Mcleod called (Refugio Galdamez RN) LaborFlag: Antepartum (QS system process) Datetime: 01/18/2017 09:20 I/O Interventions: Ayala Cath Inserted (Refugio Rudolph, RN) Patient Care Comments: 14F by S Brown [place] [place] (Refugio Rudolph, RN) Datetime: 01/18/2017 09:19 NBP Sys/Joseline/Mean (mmHg): 109 (QS system process) : 57 (QS system process) : 75 (QS system process) Pulse: 87 (QS system process) LaborFlag: Antepartum (QS system process) Datetime: 01/18/2017 09:17 Pain Presence: None/Denies (Refugio Galdamez RN) Patient Position/Activity: Left Tilt (Refugio Galdamez RN) Anesthesia Level Check: T10- Umbilicus (Refugio Galdamez RN) LaborFlag: Antepartum (QS system process) Datetime: 01/18/2017 09:16 NBP Sys/Joseline/Mean (mmHg): 116 (QS system process) : 53 (QS system process) : 77 (QS system process) Pulse: 148 (QS system process) LaborFlag: Antepartum (QS system process) Datetime: 01/18/2017 09:15 NBP Sys/Joseline/Mean (mmHg): 115 (QS system process) : 60 (QS system process) : 83 (QS system process) Pulse: 80 (QS system process) LaborFlag: Antepartum (QS system process) Datetime: 01/18/2017 09:14 NBP Sys/Joseline/Mean (mmHg): 110 (QS system process) : 59 (QS system process) : 80 (QS system process) Pulse: 82 (QS system process) Monitor Interventions for FHR: Ultrasound Adjusted (Refugio Galdaemz RN) LaborFlag: Antepartum (QS system process) Datetime: 01/18/2017 09:13 NBP Sys/Joseline/Mean (mmHg): 108 (QS system process) : 58 (QS system process) : 80 (QS system process) Pulse: 84 (QS system process) LaborFlag: Antepartum (QS system process) Datetime: 01/18/2017 09:12 NBP Sys/Joseline/Mean (mmHg): 107 (QS system process) : 57 (QS system process) : 78 (QS system process) Pulse: 78 (QS system process) Epidural Procedure: Loading Dose (Refugio Galdamez RN) LaborFlag: Antepartum (QS system process) Datetime: 01/18/2017 09:11 NBP Sys/Joseline/Mean (mmHg): 102 (QS system process) : 55 (QS system process) : 76 (QS system process) Pulse: 70 (QS system process) LaborFlag: Antepartum (QS system process) Datetime: 01/18/2017 09:10 Pulse: 70 (QS system process) SpO2 (%): 100 (QS system process) Epidural Procedure: Cath Placed; Test Dose (Refugio Galdamez RN) LaborFlag: Antepartum (QS system process) Datetime: 01/18/2017 09:05 Pulse: 76 (QS system process) SpO2 (%): 100 (QS system process) LaborFlag: Antepartum (QS system process) Datetime: 01/18/2017 09:03 Procedure Verify: Correct Patient Identity; Correct Side and Site are Marked; Accurate Procedure Consent Form; Agreement on Procedure to be Done; Correct Patient Position; Relevant Images and Results are Properly Labeled and Displayed; Addressed Need to Administer Antibiotics or Fluids for Irrigation; Safety Precautions Based on Patient History or Medication Use (Refugio Galdamez RN) Anesthesia Plans: Epidural (Refugio Galdamez RN) Epidural Positioning: Sitting (Refugio Galdamez RN) Datetime: 01/18/2017 09:00 Pulse: 81 (QS system process) SpO2 (%): 100 (QS system process) Monitor Mode: External; Palpation (Refugio Galdamez RN) Frequency (min): none/ pt denies (Refugio Galdamez RN) Resting Tone (Palpate): Relaxed (Refugio Galdamez RN) Monitor Mode: External US (Refugio Galdamez RN) FHR Baseline Rate : 130 (Refugio Galdamez RN) Variability: Moderate 6-25 bpm (Refugio Galdamez RN) Accelerations: 15X15 (Refugio Galdamez RN) Decelerations: None (Refugio Galdamez RN) Procedure Verify: Correct Patient Identity; Correct Side and Site are Marked; Accurate Procedure Consent Form; Agreement on Procedure to be Done; Correct Patient Position; Relevant Images and Results are Properly Labeled and Displayed; Addressed Need to Administer Antibiotics or Fluids for Irrigation; Safety Precautions Based on Patient History or Medication Use (Refugio Galdamez RN) Anesthesia Plans: Epidural (Refugio Galdamez RN) Epidural Positioning: Sitting (Refugio Galdamez RN) Anesthesia Comments: toco removed for epidural procedure; RN remains at bedside to attempt to obtain continuous fht and monitor pt (Refugio Galdamez RN) Anesthesia Comments: Dr Pruett at bedside to assess pt and obtain consent for epidural (Refugio Galdamez RN) Communication: RN at Bedside; RN Reviewed Strip (Refugio Galdamez RN) LaborFlag: Antepartum (QS system process) Datetime: 01/18/2017 08:58 NBP Sys/Joseline/Mean (mmHg): 106 (QS system process) : 64 (QS system process) : 79 (QS system process) Pulse: 74 (QS system process) LaborFlag: Antepartum (QS system process) Datetime: 01/18/2017 08:55 Procedure Verify: Correct Patient Identity; Correct Side and Site are Marked; Accurate Procedure Consent Form; Agreement on Procedure to be Done; Relevant Images and Results are Properly Labeled and Displayed; Addressed Need to Administer Antibiotics or Fluids for Irrigation; Safety Precautions Based on Patient History or Medication Use (Refugio Galdamez RN) Anesthesia Plans: Epidural (Refugio Galdamez RN) Anesthesia Comments: Dr Lawton called for epidural (Refugio Galdamez RN) Datetime: 01/18/2017 08:30 Temperature (F): 98.4 (Refugio Galdamez RN) Temperature (C): 36.9 (QS system process) Monitor Mode: External; Palpation (Refugio Galdamez RN) Frequency (min): none/ pt denies (Refugio Galdamez RN) Resting Tone (Palpate): Relaxed (Refugio Galdamez RN) Monitor Mode: External US (Refugio Galdamez RN) FHR Baseline Rate : 130 (Refugio Galdamez RN) Variability: Moderate 6-25 bpm (Refugio Galdamez RN) Accelerations: 15X15 (Refugio Galdamez RN) Decelerations: None (Refugio Galdamez RN) Communication: RN at Bedside; RN Reviewed Strip (Refugio Galdamez RN) LaborFlag: Antepartum (QS system process) Datetime: 01/18/2017 08:28 NBP Sys/Joseline/Mean (mmHg): 109 (QS system process) : 66 (QS system process) : 81 (QS system process) Pulse: 71 (QS system process) IV/Blood Work: New IV Bag Hung; IV Bag Number @ 2 (Refugio Galdamez RN) Patient Care Comments: NEFTALI Gross, SCDs applied, 2nd bag LR for epidural hung (Refugio Galdamez RN) LaborFlag: Antepartum (QS system process) Datetime: 01/18/2017 08:01 NBP Sys/Joseline/Mean (mmHg): 96 (QS system process) : 57 (QS system process) : 70 (QS system process) Pulse: 72 (QS system process) LaborFlag: Antepartum (QS system process) Datetime: 01/18/2017 08:00 Respirations: 18 (Refugio Galdamez RN) Monitor Mode: External; Palpation (Refugio Galdamez, RN) Frequency (min): none/ Pt denies (Refugio Galdamez, RN) Resting Tone (Palpate): Relaxed (Refugio Galdamez RN) Monitor Mode: External US (Refugio Galdamez, RN) FHR Baseline Rate : 140 (Refugio Galdamez, RN) Variability: Moderate 6-25 bpm (Refugio Mayorgaeet, RN) Accelerations: 15X15 (Refugio Galdamez, RN) Decelerations: None (Refugio Galdamez, RN) Pain Presence: None/Denies (Refugio Galdamez, RN) Communication: RN at Bedside; RN Reviewed Strip (Refugio Galdamez RN) LaborFlag: Antepartum (QS system process) Datetime: 01/18/2017 07:58 NBP Sys/Joseline/Mean (mmHg): 80 (QS system process) : 50 (QS system process) : 60 (QS system process) Pulse: 75 (QS system process) Communication: RN at Bedside (Refugio Galdamez RN) LaborFlag: Antepartum (QS system process) Datetime: 01/18/2017 07:37 IV/Blood Work: IV Started; IV Bolus Started (Refugio Galdamez RN) Patient Care Comments: Previous IV discontinued; New IV started R Hand good blood return, site wnl, infuses well. LR bolus for epidural (Refugio Galdamez RN) Datetime: 01/18/2017 07:33 Communication Comments: Dr Nita orders for pt to have epidrual (Refugio Galdamez RN) Datetime: 01/18/2017 07:30 Monitor Mode: External; Palpation (Refugio Galdamez RN) Frequency (min): none/ pt denies (Refugio Galdamez RN) Resting Tone (Palpate): Relaxed (Refugio Galdamez RN) Monitor Mode: External US (Refugio Galdamez RN) FHR Baseline Rate : 140 (Refugio Galdamez RN) Variability: Moderate 6-25 bpm (Refugio Galdamez RN) Accelerations: 15X15 (Refugio Galdamez RN) Decelerations: None (Refugio Galdamez RN) Level of Consciousness: Fully Conscious (Refugio Galdamez RN) DTR's/Clonus: DTRs 1+; No Clonus (Refugio Galdamez RN) Headache: Denies (Refugio Galdamez RN) Breath Sounds, Left: Clear and Equal (Refugio Galdamez RN) Breath Sounds, Right: Clear and Equal (Refugio Galdamez RN) Nausea/Vomiting: Denies (Refugio Galdamez RN) RUQ Epigastric Pain: Denies (Refugio Galdamez RN) Patient Care Comments: Dr Moya at bedside explaining risks and plan of care, pt agrees to version and epidural. (Refugio Galdamez RN) Instructional Method: Demo; Verbal; Patient Instructed; Family/Support Person Instructed; Verbalized Understanding (Refugio Galdamez RN) Plan of Care: Plan of Care Discussed (Annotations: External Version) (Refugio Galdamez RN) Unit Routine: [place] to Room; Call [place]; Bed; Visiting Policy; Waiting Areas; Security; Phone/Cell Phone Use; Photography; Unit Personnel; Handwashing; Flu/Illness Precautions; Monitoring; IV Pumps; Safety/Fall Risk Prevention; Diet/Nutrition Services; Bathroom Privileges; Routine Time Outs; Medications (Refugio Rudolph, RN) Pain Management: Epidural; Pain Scale/Goals; Comfort Measures (Refugio Galdamez RN) Related: Common Discomforts of ; Maternal Physical Changes; Maternal Emotional Changes; Nutrition; Hydration; Activity and Rest (Refugio Galdamez RN) Communication: RN at Bedside; RN Reviewed Strip (Refugio Galdamez RN) Communication Comments: Dr Moya at bedside for US for presentation; Breech (Refugio Galdamez RN) Datetime: 01/18/2017 07:28 NBP Sys/Joseline/Mean (mmHg): 118 (QS system process) : 74 (QS system process) : 90 (QS system process) LaborFlag: Antepartum (QS system process) Datetime: 01/18/2017 07:24 Procedures: Consents Signed (Refugio Galdamez RN) Datetime: 01/18/2017 07:14 Patient Position/Activity: Right Lateral (Refugio Galdamez RN) Datetime: 01/18/2017 07:00 Stage of : Antepartum (Patricia Rutledge RN) Monitor Mode: External (Patricia Rutledge RN) Frequency (min): n/a (Patricia Rutledge RN) Quality: Mild (Patricia Rutledge RN) Resting Tone (Palpate): Relaxed (Patricia Rutledge RN) Monitor Mode: External US (Patricia Rutledge RN) FHR Baseline Rate : 135 (Patricia Rutledge RN) FHR Baseline Changes: No Baseline Change (Patricia Rutledge RN) Variability: Moderate 6-25 bpm (Patricia Rutledge RN) Accelerations: 15X15 (Patricia Rutledge RN) Decelerations: None (Patricia Rutledge RN) Pain Presence: None/Denies (Patricia Rutledge RN) Patient Position/Activity: Right Tilt; Semi-Fowlers (Patricia Rutledge RN) Communication: RN at Bedside; RN Reviewed Strip (Patricia Rutledge RN) LaborFlag: Antepartum (QS system process)
[2017-01-18] MEDS ORDERED: HYDROCODONE/ACETAMINOPHEN 5-325 MG TABLET PO PRN (20:45)
[2017-01-18] MEDS: KETOROLAC TROMETHAMINE INJ/PF 30 MG/1 ML SDV IV SCH (21:16)
[2017-01-19] MEDS: HYDROCODONE/ACETAMINOPHEN 5-325 MG TABLET PO PRN ×5 (00:45→23:18)
--- NOTE | 2017-01-19 06:01 | L&D Current Admission ---
Current Admit Datetime Report Generated by CPN: 01/19/2017 06:00 ADMISSION INFORMATION Current Admit Date/Time: 01/18/2017 10:00 (01/18/2017 08:10:Refugio Galdamez RN) Reason for Admission: Other (01/18/2017 08:10:Refugio Galdamez RN) Other Reason for Admission: Failed ECV (01/18/2017 08:10:Refugio Galdamez RN) Chief Complaint: Other (01/18/2017 08:10:Refugio Galdamez RN) Medications During : Vitamin (01/18/2017 08:10:Refugio Galdamez RN) EGA per Dates: 38.4 (01/18/2017 08:10:QS system process) Method of Arrival: Ambulatory (01/18/2017 08:10:Refugio Galdamez RN) Admitted From: Home (01/18/2017 08:10:Refugio Galdamez RN) Reason for Induction: Not Applicable (01/18/2017 08:10:Refugio Galdamez RN) Records Available: Yes (01/18/2017 08:10:Refugio Galdamez RN) General Admission Information: Reviewed; Updated; Confirmed (01/18/2017 08:10:Refugio Galdamez RN) General Admission Reviewed By: Kae Galdamez RN (01/18/2017 08:10:Refugio Galdamez RN) BELONGINGS/ADVANCED DIRECTIVES Disposition of Belongings: Kept with Patient (01/18/2017 08:10:Refugio Galdamez RN) Comments Regarding Disposition: See [facility] belongings form filled out by patient (01/18/2017 08:10:Refugio Galdamez RN) Advance Direct for Healthcare: No, and Wants No Information (01/18/2017 08:10:Refugio Galdamez RN) Durable Power of Chemical Engineering Teacher: No (01/18/2017 08:10:Refugio Galdamez RN) Living Will: No (01/18/2017 08:10:Refugio Galdamez RN) Organ Donor: No (01/18/2017 08:10:Refugio Galdamez RN) Pt Rights Information Given: Yes (01/18/2017 08:10:Refugio Galdamez RN) Pt Understands Pt Rights: Yes (01/18/2017 08:10:Refugio Galdamez RN) LEARNING ASSESSMENT Knowledge Level: Understands L_D Process (01/18/2017 08:10:Refugio Galdamez RN) Barriers to Learning: None (01/18/2017 08:10:Refugio Galdamez RN) Learning Readiness: Motivated (01/18/2017 08:10:Refugio Galdamez RN) Learns Best By: 1 to 1 Instruction; Demonstration (01/18/2017 08:10:Refugio Galdamez RN) Learning Needs: Labor and Delivery Process; Pain Management; Symptoms to Report; Treatment Plan; Medication (01/18/2017 08:10:Refugio Galdamez RN) DOMESTIC VIOLANCE SCREENING Dom Viol Threatened/Hurt: No (01/18/2017 08:10:Refugio Galdamez RN) Hx of Abuse/Neglect past 2yrs: No (01/18/2017 08:10:Refugio Galdamez RN) Feel Unsafe Going Home: No (01/18/2017 08:10:Refugio Galdamez RN) Addt'l Observ Indicating Abuse: No (01/18/2017 08:10:Refugio Galdamez RN) Reason Unable to Complete Screen: N/A, Screen Completed (01/18/2017 08:10:Refugio Galdamez RN) Considered Personal Harm/Suicide: No (01/18/2017 08:10:Refugio Galdamez RN) NUTRITIONAL/FUNCTIONAL SCREENING Problem with Appetite >5 Days: No (01/18/2017 08:10:Refugio Galdamez RN) Chew/Swallow Difficulties: No (01/18/2017 08:10:Refugio Galdamez RN) Inappropriate Wt Gain/Loss: No (01/18/2017 08:10:Refugio Galdamez RN) Presence Skin Breakdown/Ulcer: No (01/18/2017 08:10:Refugio Galdamez RN) Special Diet: No (01/18/2017 08:10:Refugio Galdamez RN) Pt Requests [place] Visit: No (01/18/2017 08:10:Refugio Galdamez RN) Hx of Any of the Following?: N/A (01/18/2017 08:10:Refugio Galdamez RN) New Diagnosis of: N/A (01/18/2017 08:10:Refugio Galdamez RN) Requires Assist w/Ambulation: No (01/18/2017 08:10:Refugio Galdamez RN) Uses Assist Device to Ambulate: No (01/18/2017 08:10:Refugio Galdamez RN) Pt Requires Help w/ADL's: No (01/18/2017 08:10:Refugio Galdamez RN)
--- NOTE | 2017-01-19 06:01 | L&D General Admission ---
General Admit Datetime Report Generated by CPN: 01/19/2017 06:00 INFORMATION Patient Age: 26 (12/19/2016 08:51:QS system process) EDC: 01/28/2017 00:00 (01/18/2017 06:39:Ayah Plummer RN) : 1 (01/18/2017 06:39:Ayah Plummer RN) Para: 0 (01/18/2017 06:39:Ayah Plummer RN) Term: 0 (01/18/2017 06:39:Ayah Plummer RN) : 0 (01/18/2017 06:39:Ayah Plummer RN) Spontaneous Abortions: 0 (01/18/2017 06:39:Ayah Plummer RN) Induced Abortions: 0 (01/18/2017 06:39:Ayah Plummer RN) Livin (01/18/2017 06:39:Ayah Plummer RN) Cesareans: 0 (01/18/2017 06:39:Ayah Plummer RN) VBACs: 0 (01/18/2017 06:39:Ayah Plummer RN) Ectopic: 0 (01/18/2017 06:39:Ayah Plummer RN) Multiple Births: 0 (01/18/2017 06:39:Ayah Plummer RN) Baby, Number in Womb: 1 (01/18/2017 06:39:Ayah Plummer RN) CARE Primary Electronics Tester: [facility] (01/18/2017 06:39:Ayah Plummer RN) Adequate Care: Yes (01/18/2017 06:39:Ayah Plummer RN) Prepregnancy Weight (lb): 214 (01/18/2017 06:39:Ayah Plummer RN) Prepregnancy Weight (kg): 97.3 (01/18/2017 06:39:QS system process) Height (in): 63 (01/19/2017 01:31:QS system process) ALLERGIES Medication Allergy: Yes (01/18/2017 06:39:Ayah Plummer RN) Medication Allergies: Penicillins (01/18/2017); oxycodone (01/18/2017); acetaminophen (01/18/2017) (01/18/2017 06:35:QS system process) Food Allergies: n/a (01/18/2017 06:39:Patricia Rutledge RN) Environmental Allergies: n/a (01/18/2017 06:39:Patricia Rutledge RN) COMMUNICATION Primary Language: Nigerian (01/18/2017 06:39:Ayah Plummer RN) Medical Tx Preferred Language: Nigerian (01/18/2017 06:39:Ayah Plummer RN) Communication Barrier(s): None (01/18/2017 06:39:Ayah Plummer RN) DEMOGRAPHICS Address: [address] [place] [id number] (01/17/2017 10:20:QS system process) Zipcode: [phone] (01/17/2017 10:20:QS system process) Home (12/19/2016 08:51:QS system process) SSN: [id number] (12/19/2016 08:51:QS system process) Next of Kin Name: RIGOBERTO JOHNSON (12/19/2016 08:51:QS system process) Next of Kin (12/19/2016 08:51:QS system process) Next of Kin Relationship: FA (12/19/2016 08:51:QS system process) Date of : 1990 (12/19/2016 08:51:QS system process) Marital Status: Single (12/19/2016 08:51:QS system process) Sex: Female (12/19/2016 08:51:QS system process) Race: (12/19/2016 08:51:QS system process) Ethnicity: Non- or (12/19/2016 08:51:QS system process) Mosque: No Christian Info Avail. (01/17/2017 10:20:QS system process) DRUG AND ALCOHOL USE Alcohol: No (01/18/2017 06:39:Patricia Rutledge RN) Cigarettes: Never Smoker. [id number] (01/18/2017 06:39:Patricia Rutledge RN) Marijuana: No (01/18/2017 06:39:Patricia Rutledge RN) Cocaine: No (01/18/2017 06:39:Patricia Rutledge RN) Other Illicit Drugs: No (01/18/2017 06:39:Patricia Rutledge RN) VACCINE HISTORY Influenza Vaccine: Yes (01/18/2017 06:39:Patricia Rutledge RN) Influenza Date: Aug 2016 (01/18/2017 06:39:Patricia Rutledge RN) Pneumococcal Vaccine: No (01/18/2017 06:39:Patricia Rutledge RN) Tetanus Vaccine: Uncertain (01/18/2017 06:39:Patricia Rutledge RN) Tdap Vaccine: Uncertain (01/18/2017 06:39:Patricia Rutledge RN) Hepatitis B Vaccine: Yes (01/18/2017 06:39:Patrciia Rutledge RN) Trimmer Tailer: [facility] (01/18/2017 06:39:Patricia Rutledge RN) Feeding Preference: Breast (01/18/2017 06:39:Patricia Rutledge RN) Benefit of Breast Feed Discussed: Yes (01/18/2017 06:39:Patricia Rutledge RN) Circumcision: N/A (01/18/2017 06:39:Patricia Rutledge RN) Classes Attended: [facility] (01/18/2017 06:39:Patricia Rutledge RN) Tubal Ligation: No (01/18/2017 06:39:Patricai Rutledge RN) Tubal Authorization Signed: N/A (01/18/2017 06:39:Patricia Rutledge RN) Consent: N/A (01/18/2017 06:39:Patricia Rutledge RN) Consent Signed: N/A (01/18/2017 06:39:Patricia Rutledge RN) Pain Management Plans: Epidural (01/18/2017 06:39:Patricia Rutledge RN) Plans for Labor and Delivery: None (01/18/2017 06:39:Patricia Rutledge RN) Support Person: Nickolas Bill (01/18/2017 06:39:Patricia Rutledge RN) Support Person Relationship: Significant Other (01/18/2017 06:39:Patricia Rutledge RN) Cultural/Spritual Practice: [place] (01/18/2017 06:39:Patricia Rutledge RN) Spir/Cult Dietary Needs: [place] (01/18/2017 06:39:Patricia Rutledge RN) LIVING SITUATION/DISCHARGE PLAN Living Arrangements: House (01/18/2017 06:39:Patricia Rutledge RN) Adequate Access to:: Electric; Heat; Refrigeration; Plumbing/Running water; Phone; Transportation (01/18/2017 06:39:Patricia Rutledge RN) WIC Program: [place] (01/18/2017 06:39:Patricia Rutledge RN) Currently Using Commun Resources: No (01/18/2017 06:39:Patricia Rutledge RN) Outside Agency/Program Development Manager: No (01/18/2017 06:39:Patricia Rutledge RN) Car Seat for Discharge: Yes (01/18/2017 06:39:Patricia Rutledge RN) Adoption Requested: No (01/18/2017 06:39:Patricia Rutledge RN) LABS Blood Type: A Negative (01/18/2017 06:39:Ayah Plummer RN) Antibody Screen: Negative (01/18/2017 06:39:Ayah Plummer RN) Rho(G) this : Yes (01/18/2017 06:39:Ayah Plummer RN) Date Rho(G) Given: 11/06/2016 (01/18/2017 06:39:Ayah Plummer RN) Hemoglobin: 12.3 (01/18/2017 06:35:QS system process) Hematocrit: 36.6 (01/18/2017 06:35:QS system process) MCV: 79 L (01/18/2017 06:35:QS system process) Group Beta Strep: Negative (01/18/2017 06:39:Ayah Plummer RN) Gonorrhea: Negative (01/18/2017 06:39:Ayah Plummer RN) Chlamydia: Negative (01/18/2017 06:39:Ayah Plummer RN) RPR/VDRL: Nonreactive (01/18/2017 06:39:Ayah Plummer RN) HIV Results: Negative (01/18/2017 06:39:Ayah Plummer RN) Hepatitis B: Negative (01/18/2017 06:39:Ayah Plummer RN) Rubella: Immune (01/18/2017 06:39:Ayah Plummer RN) OB/PREVIOUS HISTORY Previous Procedures: None (01/18/2017 06:39:Patricia Rutledge RN) Current Procedures: None (01/18/2017 06:39:Patricia Rutledge RN) History of Previous : No (01/18/2017 06:39:Patricia Rutledge RN) History of Gestational Diabetes: No (01/18/2017 06:39:Patricia Rutledge RN) History of PIH: No (01/18/2017 06:39:Patricia Rutledge RN) History of Incompetent Cervix: No (01/18/2017 06:39:Patricia Rutledge RN) History of Placenta Previa/Abrup: No (01/18/2017 06:39:Patricia Rutledge RN) History of Macrosomia: No (01/18/2017 06:39:Patricia Rutledge RN) History of IUGR: No (01/18/2017 06:39:Patricia Rutledge RN) History of Hemorrhage: No (01/18/2017 06:39:Patricia Rutledge RN) History of Loss/Stillborn: No (01/18/2017 06:39:Patricia Rutledge RN) History of : No (01/18/2017 06:39:Patricia Rutledge RN) History of D (Rh) Sensitization: No (01/18/2017 06:39:Patricia Rutledge RN) History Recurrent Loss/Stillborn: No (01/18/2017 06:39:Patricia Rutledge RN) History Depression/PP Depression: No (01/18/2017 06:39:Patricia Rutledge RN) History of Uterine Anomaly/NUZHAT: No (01/18/2017 06:39:Patricia Rutledge RN) History of Infertility: No (01/18/2017 06:39:Patricia Rutledge RN) History of ART Treatment: No (01/18/2017 06:39:Patricia Rutledge RN) History of NUZHAT: No (01/18/2017 06:39:Patricia Rutledge RN) Comments Obstetrical History: g1 - current (01/18/2017 06:39:Patricia Rutledge RN) MEDICAL HISTORY Med Hx Diabetes: No (01/18/2017 06:39:Patricia Rutledge RN) Med Hx Hypertension: No (01/18/2017 06:39:Patricia Rutledge RN) Med Hx Heart Disease: No (01/18/2017 06:39:Patricia Rutledge RN) Med Hx Autoimmune Disorder: No (01/18/2017 06:39:Patricia Rutledge RN) Med Hx Kidney Disease/UTI: No (01/18/2017 06:39:Patricia Rutledge RN) Med Hx Neurologic/Epilepsy: No (01/18/2017 06:39:Patricia Rutledge RN) Med Hx Psychiatric Disorders: No (01/18/2017 06:39:Patricia Rutledge RN) Med Hx Hepatitis/Liver Disease: No (01/18/2017 06:39:Patricia Rutledge RN) Med Hx Varicosities/Phlebitis: No (01/18/2017 06:39:Patricia Rutledge RN) Med Hx Thyroid Dysfunction: No (01/18/2017 06:39:Patricia Rutledge RN) Med Hx Trauma/Violence: No (01/18/2017 06:39:Patricia Rutledge RN) Med Hx Blood Transfusion: No (01/18/2017 06:39:Patricia Rutledge RN) Med Hx Pulmonary (Asthma,TB): No (01/18/2017 06:39:Patricia Rutledge RN) Med Hx Breast: No (01/18/2017 06:39:Patricia Rutledge RN) Med Hx PERMIT SPECIALIST Surgery: No (01/18/2017 06:39:Patricia Rutledge RN) Med Hx Hospitalization/Surgery: No (01/18/2017 06:39:Patricia Rutledge RN) Med Hx Anesthetic Complications: No (01/18/2017 06:39:Patricia Rutledge RN) Med Hx Abnormal Pap Smear: No (01/18/2017 06:39:Patricia Rutledge RN) Other Medical Diseases: No (01/18/2017 06:39:Patricia Rutledge RN) Med Hx Significant Family Hx: No (01/18/2017 06:39:Patricia Rutledge RN) INFECTIOUS HISTORY Inf Hx Gonorrhea: No (01/18/2017 06:39:Patricia Rutledge RN) Inf Hx Chlamydia: No (01/18/2017 06:39:Patricia Rutledge RN) Inf Hx Syphilis: No (01/18/2017 06:39:Patricia Rutledge RN) Inf Hx HIV/AIDS: No (01/18/2017 06:39:Patricia Rutledge RN) Inf Hx Human Papilloma Virus: No (01/18/2017 06:39:Patricia Rutledge RN) Inf Hx Pt/Partner Genital Herpes: No (01/18/2017 06:39:Patricia Rutledge RN) Inf Hx Tuberculosis/Exposure: No (01/18/2017 06:39:Patricia Rutledge RN) Inf Hx Hepatitis B,C: No (01/18/2017 06:39:Patricia Rutledge RN) Inf Hx Rash or Viral Illness: No (01/18/2017 06:39:Patricia Rutledge RN) GENETIC HISTORY Gen Hx Age >=35 at [place]: No (01/18/2017 06:39:Patricia Rutledge RN) Gen Hx Thalassemia: No (01/18/2017 06:39:Patricia Rutledge RN) Gen Hx Congenital Heart Defect: No (01/18/2017 06:39:Patricia Rutledge RN) Gen Hx Neural Tube Defect: No (01/18/2017 06:39:Patricia Rutledge RN) Gen Hx Down's Syndrome: Yes (01/18/2017 06:39:Patricia Rutledge RN) Gen Hx Nikita-Sachs: No (01/18/2017 06:39:Patricia Rutledge RN) Gen Hx Magdalene: No (01/18/2017 06:39:Patricia Rutledge RN) Gen Hx Familial Dysautonomia: No (01/18/2017 06:39:Patricia Rutledge RN) Gen Hx Sickle Cell Disease/Trait: No (01/18/2017 06:39:Patricia Rutledge RN) Gen Hx Hemophilia/Blood Disorder: No (01/18/2017 06:39:Patricia Rutledge RN) Gen Hx Muscular Dystrophy: No (01/18/2017 06:39:Patricia Rutledge RN) Gen Hx Cystic Fibrosis: No (01/18/2017 06:39:Patricia Rutledge RN) Gen Hx Huntingtons Chorea: No (01/18/2017 06:39:Patricia Rutledge RN) Gen Hx Mental Retardation/Autism: No (01/18/2017 06:39:Patricia Rutledge RN) Gen Hx Tested for Fragile X: No (01/18/2017 06:39:Patricia Rutledge RN) Gen Hx Other Inher/Chromosomal: No (01/18/2017 06:39:Patricia Rutledge RN) Gen Hx Maternal Metabolic DO: No (01/18/2017 06:39:Patricia Rutledge RN) Gen Hx Pt Father or FOB Defect: No (01/18/2017 06:39:Patricia Rutledge RN) Gen Hx Other Genetic History: No (01/18/2017 06:39:Patricia Rutledge RN) Gen Hx Drugs/Meds since LMP: Yes (01/18/2017 06:39:Patricia Rutledge RN) Gen Hx Medications: PNV (01/18/2017 06:39:Patricia Rutledge RN) Details of Genetic History: maternal uncle with down syndrome matneral cousin with spina bifida (01/18/2017 06:39:Patricia Rutledge RN)
--- NOTE | 2017-01-19 06:16 | L&D Care Plan ---
LD CARE PLANS Datetime Report Generated by CPN: 01/19/2017 06:15 Datetime: 01/18/2017 10:11 Pain State: Risk For (Nancy Pedro RN) Related To: Surgical Procedure; Treatment and Procedures (Nancy Perdo RN) Goal(s): Patients Pain will be Assessed and Managed; Patient will Verbalize Adequate Relief of Pain or the Ability to [place] with Current Pain (Nancy Pedro RN) Interventions: Assess Pain Severity on Scale of 0 (None) to 5 (Severe); Assess Type, Location and Intensity of Pain Each Time Client Reports Discomfort and Notify Provider if Unusal Pain Develops; Encourage Proper Breathing and Relaxation Techniques; Offer Alternatives Such as Repositioning, Calm Environment, Massages, Diversional Activities, Ice Pack, Splinting, and Ambulation (Nancy Pedro RN) Outcome: Patient will Report Absence or Relief of Pain Consistent with Established Pain Goal (Nancy Pedro RN) Status: Ongoing (Nancy Pedro RN) Outcome: Patient will have a Decrease in Signs and Symptoms of Discomfort (Nancy Pedro RN) Status: Ongoing (Nancy Pedro RN) Anxiety State: Not Applicable (Nancy Pedro RN) Knowledge Deficit State: Risk For (Nancy Pedro RN) Related To: Labor and Delivery Process (Nancy Pedro RN) Goal(s): Patient will Accurately Verbalize Understanding of Plan of Care and Treatment (Nancy Pedro RN) Interventions: Assess Motivation and Willingness of Patient/Family to Learn; Assess Preferred Learning Mode: One to One Instruction, Reading, Videos, Group Discussion or Demonstration (Nancy Pedro RN) Outcome: Patient and Family will Verbalize Understanding of Condition, Treatment and Signs and Symptoms to Report (Nancy Pedro RN) Status: Ongoing (Nancy Pedro RN) Infection State: Risk For (Nancy Pedro RN) Related To: Surgical Procedures (Nancy Pedro RN) Goal(s): The Patient will be Free of Infection, Vital Signs Stable and Lab Work within Normal Parameters (Nancy Pedro RN) Interventions: Instruct and Reinforce Proper Handwashing, Hygiene, and Care Techniques to Patient and Family; Monitor Vital Signs; Monitor Patient for the Following Signs of Infection: Fever, Abdominal Tenderness, Unusual Discharge (Nancy Pedro RN) Outcome: Patient will Remain Free of Infection (Nancy Pedro RN) Status: Ongoing (Nancy Pedro RN) Outcome: Infection will be Recognized Early to Allow for Prompt Treatment (Nancy Pedro RN) Status: Ongoing (Nancy Pedro RN) Fluid Volume State: Not Applicable (Nancy Pedro, BOGDAN) Injury State: Not Applicable (Nancy Pedro, BOGDAN) Impaired Skin Integrity State: Risk For (Nancy Pedro RN) Related To: Surgical Procedures (Nancy Pedro RN) Goal(s): Patient will Maintain Optimal Skin Integrity, Free of Breakdown, Injury or Infection (Nancy Pedro RN) Interventions: Complete Screening for Pressure Ulcer Risk and Initiate Protocol per Hospital Policy; Monitor Site of Skin Impairment for Color Changes, Redness, Swelling, Warmth, Pain or Other Signs of Infection; Encourage and Assist with Position Changes (Nancy Pedro RN) Outcome: Patient will not have Evidence of Injury Such as Skin Breakdown, Scrapes, Cuts, or Bruising (Nancy Pedro RN) Status: Ongoing (Nancy Pedro RN) Outcome: Patient will Report Any Altered Sensation or Pain at Site of Skin Impairment (Nancy Pedro RN) Status: Ongoing (Nancy Pedro RN) Parenting Impaired State: Not Applicable (Nancy Willis, RN) Nutrition State: Not Applicable (Nancy Willis, RN) Grieving State: Not Applicable (Nancy Willis, RN) Datetime: 01/18/2017 10:10 Pain State: Risk For (Nancy Pedro RN) Related To: Surgical Procedure; Treatment and Procedures (Nancy Pedro RN) Goal(s): Patients Pain will be Assessed and Managed; Patient will Verbalize Adequate Relief of Pain or the Ability to [place] with Current Pain (Nancy Pedro RN) Interventions: Assess Pain Severity on Scale of 0 (None) to 5 (Severe); Assess Type, Location and Intensity of Pain Each Time Client Reports Discomfort and Notify Provider if Unusal Pain Develops; Encourage Proper Breathing and Relaxation Techniques; Offer Alternatives Such as Repositioning, Calm Environment, Massages, Diversional Activities, Ice Pack, Splinting, and Ambulation (Nancy Pedro RN) Outcome: Patient will Report Absence or Relief of Pain Consistent with Established Pain Goal (Nancy Pedro RN) Status: Ongoing (Nancy Pedro RN) Outcome: Patient will have a Decrease in Signs and Symptoms of Discomfort (Nancy Pedro RN) Status: Ongoing (Nancy Pedro RN) Anxiety State: Not Applicable (Nancy Pedro RN) Knowledge Deficit State: Risk For (Nancy Pedro RN) Related To: Labor and Delivery Process (Nancy Pedro RN) Goal(s): Patient will Accurately Verbalize Understanding of Plan of Care and Treatment (Nancy Pedro RN) Interventions: Assess Motivation and Willingness of Patient/Family to Learn; Assess Preferred Learning Mode: One to One Instruction, Reading, Videos, Group Discussion or Demonstration (Nancy Pedro RN) Outcome: Patient and Family will Verbalize Understanding of Condition, Treatment and Signs and Symptoms to Report (Nancy Pedro RN) Status: Ongoing (Nancy Pedro RN) Infection State: Risk For (Nancy Pedro RN) Related To: Surgical Procedures (Nancy Pedro RN) Goal(s): The Patient will be Free of Infection, Vital Signs Stable and Lab Work within Normal Parameters (Nancy Pedro RN) Interventions: Instruct and Reinforce Proper Handwashing, Hygiene, and Care Techniques to Patient and Family; Monitor Vital Signs; Monitor Patient for the Following Signs of Infection: Fever, Abdominal Tenderness, Unusual Discharge (aNncy Pedro RN) Outcome: Patient will Remain Free of Infection (Nancy Willis, RN) Status: Ongoing (Nancy Pedro, RN) Outcome: Infection will be Recognized Early to Allow for Prompt Treatment (Nancy Pedro, RN) Status: Ongoing (Nancy Pedro, RN) Fluid Volume State: Not Applicable (Nancy Carpentermes, RN) Injury State: Not Applicable (Nancy Pedro, RN) Impaired Skin Integrity State: Risk For (Nancy Pedro, RN) Related To: Surgical Procedures (Nancy Pedro, RN) Goal(s): Patient will Maintain Optimal Skin Integrity, Free of Breakdown, Injury or Infection (Nancy Pedro RN) Interventions: Complete Screening for Pressure Ulcer Risk and Initiate Protocol per Hospital Policy; Monitor Site of Skin Impairment for Color Changes, Redness, Swelling, Warmth, Pain or Other Signs of Infection; Encourage and Assist with Position Changes (Nancy Pedro RN) Outcome: Patient will not have Evidence of Injury Such as Skin Breakdown, Scrapes, Cuts, or Bruising (Nancy Pedro RN) Status: Ongoing (Nancy Pedro RN) Outcome: Patient will Report Any Altered Sensation or Pain at Site of Skin Impairment (Nancy Pedro RN) Status: Ongoing (Nancy Pedro RN) Parenting Impaired State: Not Applicable (Nancy Pedro RN) Nutrition State: Not Applicable (Nancy Pedro RN) Grieving State: Not Applicable (Nancy Pedro, RN)
[2017-01-19] MEDS: KETOROLAC TROMETHAMINE INJ/PF 30 MG/1 ML SDV IV SCH (06:29)
[2017-01-19 06:57] LABS: HEMATOCRIT 31.7 % (36.0-47.0); HEMOGLOBIN 10.8 g/dL (12.0-15.5); HGB HCT DIFFERENCE 0.7; MEAN CORPUSCULAR HEMOGLOBIN 26.9 pg (27.0-33.4); MEAN CORPUSCULAR VOLUME 79 fl (80-97); RED BLOOD COUNT 4.02 10^6/uL (3.72-5.28); RED CELL DISTRIBUTION WIDTH 14.1 % (11.5-14.0); WHITE BLOOD COUNT 10.9 10^3/uL (4.0-10.5)
[2017-01-19] MEDS: PRENATAL VITAMIN W-O CA NO5/FE FUMARATE/FA CAPSULE PO SCH (10:08)
[2017-01-19] MEDS: DOCUSATE SODIUM 100 MG CAPSULE PO SCH ×2 (10:08→17:53)
--- NOTE | 2017-01-19 11:00 | PDOC PROGRESS REPORT ---
Subjective-OB Subjective: Post Delivery Day: 26 year old. Denies any needs at this time pt sitting up ambulating well +flatus incision dry and intact- opsite dressing encouraged ambulation [id number] mild lochia Physical Exam (OB) Vital Signs: Temp Pulse Resp BP Pulse Ox 98.0 F 73 16 114/69 97 01/19/17 08:37 01/19/17 08:37 01/19/17 08:37 01/19/17 08:37 01/19/17 08:37 Intake & Output 01/18/17 01/19/17 01/20/17 06:59 06:59 06:59 Intake Total 1000 300 Output Total 2600 500 Balance -1600 -200 Weight 102.95 kg - Dressing Removed: No - opsite dressing D&I, no redness, swelling or discharge noted Incision: Well Approximated Closure Type: Surgical Glue - Lochia Lochia Amount: Scant < 10 ml Lochia Color: Rubra/Red - Abdomen Description: Tender Hernia Present: No Fundal Description: Firm, Midline Fundal Height: u/u - u/2 Objective-Diagnostic Laboratory: 01/19/17 06:36 01/19/17 06:36 WBC 10.9 H RBC 4.02 Hgb 10.8 L Hct 31.7 L MCV 79 L MCH 26.9 L MCHC 34.0 RDW 14.1 H Plt Count 202
[2017-01-19] MEDS: IBUPROFEN 800 MG TABLET PO SCH ×3 (13:01→23:18)
[2017-01-19] MEDS ORDERED: IBUPROFEN 800 MG TABLET PO SCH (18:00)
[2017-01-20] MEDS: IBUPROFEN 800 MG TABLET PO SCH ×2 (05:18→11:12)
[2017-01-20] MEDS: HYDROCODONE/ACETAMINOPHEN 5-325 MG TABLET PO PRN ×2 (05:19→09:16)
--- NOTE | 2017-01-20 08:51 | PDOC PROGRESS REPORT ---
Subjective-OB Subjective: Post Delivery Day: 26 year old. Denies any needs at this time. Ready to go home. Physical Exam (OB) Vital Signs: Temp Pulse Resp BP Pulse Ox 98.6 F 74 20 109/68 96 01/20/17 08:20 01/20/17 08:20 01/20/17 08:20 01/20/17 08:20 01/20/17 08:20 Intake & Output 01/19/17 01/20/17 01/21/17 06:59 06:59 06:59 Intake Total 1000 1100 Output Total 2600 1250 Balance -1600 -150 - Dressing Removed: No - op site Incision: Dressing Closure Type: Surgical Glue - Lochia Lochia Amount: Scant < 10 ml Lochia Color: Rubra/Red - Abdomen Description: Soft Hernia Present: No Bowel Sounds: Normoactive Flatus Presence: Present Stool: No Fundal Description: Firm, Midline Fundal Height: u/u - u/2 Objective-Diagnostic Laboratory: 01/19/17 06:36
--- NOTE | 2017-01-20 08:57 | PDOC DISCHARGE SUMMARY ---
Final Diagnosis Discharge Date: 01/20/17 - Final Diagnosis (1) Delivery by elective caesarean section Is this a current diagnosis for this admission?: Yes (2) Obesity affecting Is this a current diagnosis for this admission?: Yes Discharge Data - Discharge Medication Home Medications: Pnv95/Ferrous Fumarate/FA [ Vitamin Tablet] 1 each PO DAILY 01/17/17 Docusate Sodium [Colace 100 mg Capsule] 100 mg PO BID #30 capsule 01/20/17 Hydrocodone/Acetaminophen [[place] 5-325 mg Tablet] 1 tab PO Q4HP PRN #30 tablet 01/20/17 Ibuprofen [Motrin 800 mg Tablet] 800 mg PO Q6 #30 tablet 01/20/17 Gestational Age: 38.4 wks Reason(s) for Admission: Ceasarean Section-Primary, Other Procedures: Ultrasound Intrapartum Procedure(s): : Low Cervical, Transverse - Diagnosis Test Laboratory: Temp Pulse Resp BP Pulse Ox 98.6 F 74 20 109/68 96 01/20/17 08:20 01/20/17 08:20 01/20/17 08:20 01/20/17 08:20 01/20/17 08:20 01/18/17 01/18/17 01/19/17 06:30 06:35 06:36 RBC 4.63 4.02 Hgb 12.3 10.8 L Hct 36.6 31.7 L Urine Opiates Screen NEGATIVE - Discharge information/Instructions Discharge Activity: Activity As Tolerated, Balance Activity w/Rest, No Driving, No Lifting Over 10 Pounds, No Lifting/Push/Pulling, Pelvic Rest, Slowly Increase Activity, No tub bath Discharge Diet: Regular Disposition: HOME, SELF-CARE Follow up with: [facility] in: 1, Weeks
[2017-01-20] MEDS: DOCUSATE SODIUM 100 MG CAPSULE PO SCH (09:15)
[2017-01-20] MEDS: PRENATAL VITAMIN W-O CA NO5/FE FUMARATE/FA CAPSULE PO SCH (09:16)
[2017-01-20 11:56] VITALS: BP 114/80
== END 2017-01-20 13:50 | disposition home or self-care (01) | DRG 766 ==
LOC: LC 06:13 → LR 10:11 → 2S 15:07
PROVIDERS: ADMIT Specialist; ATTEND Specialist
PROC: 10D00Z1 Extraction of Products of Conception, Low, Open Approach (ICD-10-PCS; principal; 2017-01-18)
PROC: 4A1HXCZ Monitoring of Products of Conception, Cardiac Rate, External Approach (ICD-10-PCS; 2017-01-18)
DX: O76 Abnormality in fetal heart rate and rhythm complicating labor and delivery (principal); O99.214 Obesity complicating childbirth; O32.1XX0 Maternal care for breech presentation, not applicable or unspecified; E66.9 Obesity, unspecified; Z68.38 Body mass index [BMI] 38.0-38.9, adult; Z88.0 Allergy status to penicillin; Z88.6 Allergy status to analgesic agent; Z3A.38 38 weeks gestation of pregnancy; Z37.0 Single live birth
CPT/HCPCS: 1961; 36415; 59025; 80307; 81005; 85025; 85027; 86592; 86850; 86870; 86900; 86901; 88307; 94760; 94799; C1765; J0131; J0456; J0690; J1170; J1885; J2250; J2405; J2590; J3010; J3490; J7060